=== PATIENT | male | born 1960 | race Caucasian/White ===

== ENCOUNTER → 2023-05-07 08:58 | Outpatient (CLI) | payer OTHER, SELFPAY ==
--- NOTE | ~2023-05-07 | XR_ITS ---
EXAMINATION: XR abdomen/kub 1V DATE: 05/07/2023 09:52 INDICATION: Other microscopic hematuria. TECHNIQUE: A supine view of the abdomen on 2 radiographs was obtained. COMPARISON: CT abdomen and pelvis 05/07/2023 FINDINGS: There are no dilated loops of bowel. There are 2 stones in left kidney measuring up to 5 mm . IMPRESSION: 1. Left kidney stones. Reviewed, dictated and finalized at location E. IMPRESSION: 1. Left kidney stones.
--- NOTE | ~2023-05-07 | CT_ITS ---
CT of the Abdomen and Pelvis: Indication: Microscopic hematuria Technique: 2.5 mm axial scans were obtained through the abdomen and pelvis prior to and following in travenous administration of 130 cc of Omnipaque 350. Dose reduction technique was used on this scan b y utilizing automated exposure control and iterative reconstruction technique. The dose-length produc t (DLP) was 1282.64 mGy-cm. Findings: Scans through the lung bases are unremarkable. The liver, spleen, pancreas, gallbladder, adrenals and right kidney are within normal limits. There a re 2 nonobstructing left renal stones, at the mid pole measuring 7 mm, and at the lower pole measurin g 4 mm. There are atherosclerotic calcifications of the aorta. No lymphadenopathy. No bowel obstruction or bowel wall thickening. There is no evidence to suggest acute appendicitis. Images through the pelvis were performed. Urinary bladder unremarkable. Prostate gland and seminal ve sicles are unremarkable. No ascites. Impression: Nonobstructing left nephrolithiasis, as detailed above. Reviewed, dictated and finalized at location M. Impression: Nonobstructing left nephrolithiasis, as detailed above.
[2023-05-07 09:27] LABS: Estimated Glomerular Filt Rate > 60
== END ==
PROVIDERS: PCP Urology; Visit Provider Urology
DX: R31.29 Other microscopic hematuria (principal); N20.0 Calculus of kidney
CPT/HCPCS: 74018; 74178; Q9967

== ENCOUNTER 2023-06-28 07:36 | Outpatient (CLI) | payer OTHER, SELFPAY ==
[2023-06-28 08:06] LABS: Basophils Percent Auto 0.7 % (0.2-1.2); Eosinophils Absolute Auto 0.2 K/mm3 (0-0.3); Eosinophils Percent Auto 3.8 % (0-4.4); Hematocrit 47.4 % (42.0-52.0); Hemoglobin 15.6 g/dL (14.0-18.0); Immature Granulocyte Absolute 0.02 K/mm3 (0.00-0.031); Immature Granulocyte Percent A 0.3 % (0-0.5); Lymphocytes Absolute Auto 1.73 K/mm3 (0.9-3.2); Lymphocytes Percent Auto 30.1 % (18.3-44.2); Mean Corpuscular HGB Conc 32.9 g/dl (32-36); Mean Corpuscular Hemoglobin 30.2 pg (26-34); Mean Corpuscular Volume 91.9 fl (80-100); Mean Platelet Volume 10.6 fl (7.4-10.4); Monocytes Absolute Auto 0.4 K/mm3 (0.1-0.6); Monocytes Percent Auto 7.3 % (2.6-8.5); Neutrophils Absolute Auto 3.3 K/mm3 (1.3-6.7); Neutrophils Percent Auto 57.8 % (45.5-73.1); Platelet Count Result 208 k/mm3 (150-375); Red Blood Count 5.16 M/mm3 (4.6-6.20); Red Cell Distribution Width 11.9 % (11.5-14.5); White Blood Count 5.8 K/mm3 (4.5-10.0)
[2023-06-28 08:10] LABS: Prothrombin Time 13.9 Seconds (11.1-14.7)
[2023-06-28 08:11] LABS: Partial Thromboplastin Time 28.4 SECONDS (22.3-36.8)
[2023-06-28 08:42] LABS: Anion Gap 10 mmol/L (8-16); Blood Urea Nitrogen 24 mg/dL (9-20); Calcium 9.7 mg/dL (8.4-10.2); Carbon Dioxide 26 mmol/L (22-30); Chloride 106 mmol/L (98-107); Estimated Glomerular Filt Rate > 60; Glucose 106 mg/dL (65-110); Potassium 4.4 mmol/L (3.4-5.0); Sodium 142 mmol/L (137-145)
== END 2023-06-28 07:37 | disposition home or self-care (01) ==
LOC: ANHLAB 07:38
PROVIDERS: PCP Internal Medicine; Visit Provider Urology
DX: R97.20 Elevated prostate specific antigen [PSA] (principal); Z01.818 Encounter for other preprocedural examination
CPT/HCPCS: 36415; 80048; 85025; 85610; 85730

== ENCOUNTER 2023-07-01 01:07 | Day surgery (SDC) | payer OTHER, SELFPAY ==
[2023-06-27 12:58] VITALS: BMI 23.0
--- NOTE | 2023-06-27 12:59 | PC.NURSE ---
Report to the Outpatient Waiting Room, entrance under the green pavilion located off [facility], at time _0730_ on date _[id number]_. Planned Procedure Time: _0930_. Time changes happen often and if your time is changed the preop area will call you the afternoon before. - You and your visitor will be asked to self-screen and do not enter if you have any COVID symptoms. - A mask is optional within the hospital at this time. Patients may have clear liquids (water, carbonated beverages, clear teas, apple juice) until 3 hours prior to surgery with a maximum of 20 ounces. - No food from midnight until time of surgery Take the following medications with a SIP of water the morning of surgery: ___Levothyroxine DO NOT STOP ANY OF YOUR OTHER PRESCRIPTION MEDICATIONS PRIOR TO SURGERY ?EXCEPT THE FOLLOWING Medications to discontinue per physician None Date to take last dose Please no make-up, nail montserratian, hairspray, perfume, deodorant, or body powder the day of surgery. No jewelry (including any body piercings) or valuables the day of surgery, leave them at home. Please take a shower or bath the night before, or the morning of, surgery with an antibacterial soap. Wear comfortable, loose fitting clothing. - Jewelry must be removed prior to entering the operating room. Rings and piercings that are not removed may be cut off. - The hospital will not accept responsibility for valuables. - Please leave all valuables, including medications, at home the day of surgery. If you are going home after surgery, a licensed goat driver must drive you home. - NO public transportation without another adult if you receive anesthesia. - We recommend that an adult stay with you for 24 hours following discharge. - We also recommend that you do not drive, make important decision, drink alcoholic beverages, or take any drugs that were not prescribed by your health care provider for at least 24 hours after your discharge time. Follow any additional instructions given to you from your surgeon. If you or anyone in your household have experienced Covid symptoms in the past week, please notify your surgeon or the nurse liaison at the phone number below for possible testing. Telephone instructions given to _Dan___and asked if any additional questions and then verbalized understanding. Patient advised to call surgeon office or pre surgery nurse liaison [phone] if any additional questions.
[2023-07-01] VITALS (15 sets, daily range): BP systolic 101–150; BP diastolic 58–93; PULSE 57–84; RESP 12–25; TEMP 36–36.6; O2SAT 98–100
--- NOTE | 2023-07-01 06:14 | ECG_ITS ---
Measurements Intervals [place] Rate: 72 P: 79 MN: 159 QRS: 59 QRSD: 93 T: 55 QT: 362 QTc: 398 Interpretive Statements SINUS RHYTHM NONSPECIFIC T-WAVE ABNORMALITY ABNORMAL ECG NO PREVIOUS ECG AVAILABLE FOR COMPARISON Electronically Signed On 07-01-2023 16:59:44 QUALITY CONTROL ANALYST by Homer Jay M.D.
[2023-07-01] MEDS: LACTATED RINGERS 1,000 ML 30 ML IV CONT ×2 (08:00→10:38)
--- NOTE | 2023-07-01 08:13 | WPDHPUPDATE1 ---
History and Physical Update Update Date/Time: 07/01/23 08:13 History and Physical has been reviewed, including an updated exam of the patient. There are NO changes in the patient's condition. Risks, benefits, and alternatives have been discussed and questions answered. Patient agrees to proceed with procedure. Proceed with transurethral resection of prostate
--- NOTE | 2023-07-01 08:36 | P.PNAN_ITS ---
Anes - Initial Pre Proc Eval Procedure: Operation Date: 07/01/23 09:30 Proposed Procedures p Trans Urethral Resection of Prostate, Possible Prostate Biopsy - Mark Adrian MD Date/Time: 07/01/23 08:36 Surgeon: Mark Adrian MD Pre Op Diagnosis: bph,elevate psa Patient Data Age: 62 Gender: M Height: 1.78 m Weight: 72.7 kg Allergies Allergy/AdvReac Type Severity Reaction Status Date / Time No Known Allergies Allergy Unverified 06/27/23 12:47 Home Medications Medication Instructions Recorded Confirmed Type levothyroxine 100 mcg tablet 100 mcg PO QAM 06/27/23 06/27/23 History rosuvastatin 40 mg tablet 40 mg PO QAM 06/27/23 06/27/23 History vitamin E 400 unit tablet 180 mg PO DAILY 06/27/23 06/27/23 History Patient hx anesthesia problems: none Family hx anesthesia problems: none Results Review: All pre-operative results and documents have been reviewed as part of the pre- operative evaluation. [facility] Social History Social History Smoking packs per day: 1 Smoking cigarettes per day: 20.0 Years smoked: 10 Smoking pack-years: 10.00 Smoking status: Former smoker Tobacco type: cigarettes Smoking end date: 06/27/93 Alcohol intake: current Drinks per week: 21 Living arrangements: with family Spiritual care concerns: No Anes - Eval Final PreProcedure Day of Procedure 07/01/23 08:36 Patient weight: normal Heart: regular rate and rhythm Lungs: clear to auscultation Airway: Mallampati scale class II Neurological: alert and oriented Last oral intake: >/= 8 hours ASA classification: II Emergent: no Anesthetic plan: proceed Anesthesia type and monitoring: general LMA and standard monitoring Results Review: All pre-operative results and documents have been reviewed as part of the pre- operative evaluation. Informed Consent: The patient's anesthetic plan and its attendant risks and benefits were discussed with the patient/family/POA. Questions were solicited and answers provided to the satisfaction of the patient/family/POA.
[2023-07-01] MEDS: fentaNYL CITRATE INJ (*CRX) 100 MCG/2 ML VIAL 50 MCG IV PUSH (08:50)
[2023-07-01] MEDS: ceFAZolin 2 GM/D5W 50 ML 2 GM/50 ML BAG IVPB (09:43)
[2023-07-01] MEDS: LIDOCAINE HCL 2% GEL UROJET 10 ML PKG MUCOUS MEM (10:04)
--- NOTE | 2023-07-01 10:45 | P.OP_ITS ---
Procedure Note - Detailed Date of Procedure 07/01/23 Pre-op Diagnosis bph,elevate psa, obstructive voiding symptoms with pain Post-op Diagnosis Same Procedure Performed Transurethral resection of his prostate Surgeon Mark Adrian MD Anesthesia General Description of Procedure Patient is taken to the operative suite correctly identified. Once anesthesia was obtained was placed in dorsal lithotomy position and prepped and draped usual sterile fashion. Endoscopy reveals again very friable abnormal appearing tissue which is distorted the normal anatomic landmarks of the verumontanum. There also was irregularity at the bladder neck and extending into the mid trigone area. No other tumors were noted in the bladder. Both ureteral orifices were visualized at all times. Twenty-four Egyptian resectoscope sheath was then inserted. We did take down the lateral lobes from the bladder neck to what appeared to be proximal to the verumontanum. Again the normal anatomy is distorted and I did not want to on the risk of injuring the external sphincter. Unopened prostatic fossa was created. He then had irregularity still at the bladder neck and the 6 o'clock position extending to the mid trigone area. I resected this in a separate fashion and sent it separately. Hemostasis was achieved using electrocautery. 2% viscous lidocaine was inserted into the urethra. Twenty-four Egyptian [address] was placed with 10 cc in the balloon. Patient is taken recovery stable condition. Further recommendation will be made pending his path report. This completes dictation on this patient. Please send a copy to my office Estimated Blood Loss 25 Drains Yes Packing No Pathology Yes Complications No immediate complications Condition Stable Disposition PACU
[2023-07-01] MEDS: fentaNYL CITRATE INJ (*CRX) 100 MCG/2 ML VIAL 25 MCG IV PUSH ×8 (10:59→13:32)
[2023-07-01] MEDS: oxyBUTYnin CHLORIDE 5 MG TABLET PO (11:49)
--- NOTE | 2023-07-01 12:11 | SUR.PHASEI ---
1200: Patient meets PACU discharge criteria, unit bed unavailable at this time. Patient placed in extended recovery status.
[2023-07-01] MEDS: ceFAZolin 1 GM/NS 50 ML 1 GM/50 ML BAG IVPB (15:25)
[2023-07-01] MEDS: MORPHINE SULFATE (*CRX) 2 MG/ML INJ IV PUSH (15:25)
[2023-07-01] MEDS: DOCUSATE SODIUM 100 MG CAPSULE PO (18:09)
[2023-07-01] MEDS: HYDROcodone/acetaminophen (*CRX) 5-325 MG TABLET 1 TAB PO (18:10)
[2023-07-02 00:19] VITALS: BP 107/67; PULSE 63; RESP 14; TEMP 36.4; O2SAT 98
[2023-07-02] MEDS: ceFAZolin 1 GM/NS 50 ML 1 GM/50 ML BAG IVPB (02:15)
[2023-07-02 04:19] VITALS: BP 124/72; PULSE 65; RESP 14; TEMP 36.6; O2SAT 100
[2023-07-02] MEDS: LEVOTHYROXINE SODIUM 100 MCG TABLET PO (05:51)
[2023-07-02] MEDS: CEPHALEXIN 500 MG CAPSULE PO (05:51)
[2023-07-02] MEDS: HYDROcodone/acetaminophen (*CRX) 5-325 MG TABLET 1 TAB PO (05:51)
[2023-07-02 07:19] LABS: Hematocrit 44.7 % (42.0-52.0); Hemoglobin 15.2 g/dL (14.0-18.0)
[2023-07-02 07:32] LABS: Anion Gap 7 mmol/L (8-16); Blood Urea Nitrogen 15 mg/dL (9-20); Calcium 9.4 mg/dL (8.4-10.2); Carbon Dioxide 26 mmol/L (22-30); Chloride 105 mmol/L (98-107); Estimated CRCL calculation 77 ml/min; Estimated Glomerular Filt Rate > 60; Glucose 101 mg/dL (65-110); Potassium 4.9 mmol/L (3.4-5.0); Sodium 138 mmol/L (137-145)
[2023-07-02 08:00] VITALS: BP 124/73; PULSE 67; RESP 18; TEMP 36.5; O2SAT 100
[2023-07-02] MEDS: DOCUSATE SODIUM 100 MG CAPSULE PO (08:31)
[2023-07-02] MEDS: ROSUVASTATIN 10 MG TABLET 40 MG PO (08:31)
--- NOTE | 2023-07-02 10:18 | WPDUROPN2 ---
Progress Note: A&P Assessment and Plan (1) Elevated PSA: Code(s): R97.20 - Elevated prostate specific antigen [PSA] Status: Acute Assessment and Plan: Awaiting final pathology on prostate resection (2) BPH w urinary obs/LUTS: Code(s): N40.1 - Benign prostatic hyperplasia with lower urinary tract symptoms; N13.8 - Other obstructive and reflux uropathy Status: Acute Assessment and Plan: Status post transurethral resection of prostate. Doing well overall. Urine is clear on minimal CBI. Will hold CBI. If remains clear he will be discharged home a little later this afternoon. Plan is to have Levine catheter removed on Friday. Patient will be instructed how to do that. If he is unable to he will call the office. Further recommendations will be made pending his final pathology. Subjective Subjective Date/Time Seen: 07/02/23 10:18 Post Op day: 1 (Transurethral resection of prostate) Principal diagnosis: Elevated PSA with obstructive voiding symptoms Interval history: Darnell is doing well overall today. His urine was clear with minimal CBI. Have discussed intraoperative findings with patient and his today. Pathology is pending Review of Systems Review of Systems: All systems reviewed & are unremarkable except as noted in HPI and below Exam Const: General: cooperative and comfortable Resp: Effort & Inspection: normal respiratory effort Cardio: Rate: regular rate Rhythm: regular rhythm Urinary Catheter: Urinary Catheter: patent and draining and urine clear Objective Data Vital Signs Vital Signs: Vital Signs - 24 hr 07/01/23 10:38 07/01/23 10:49 07/01/23 10:50 Temperature 36.6 C Pulse Rate 57 L 79 83 Respiratory Rate 12 18 12 Blood Pressure 107/73 120/74 127/75 Pulse Oximetry 100 100 100 Oxygen Delivery Simple Face Mask Simple Face Mask Simple Face Mask Oxygen Flow Rate 8 8 8 07/01/23 11:05 07/01/23 11:20 07/01/23 11:45 Temperature Pulse Rate 81 84 80 Respiratory Rate 15 12 25 H Blood Pressure 124/75 122/75 120/68 Pulse Oximetry 100 100 100 Oxygen Delivery Simple Face Mask Simple Face Mask Room Air Oxygen Flow Rate 8 8 07/01/23 12:00 07/01/23 12:15 07/01/23 13:05 Temperature Pulse Rate 70 76 62 Respiratory Rate 15 14 16 Blood Pressure 150/93 H 139/93 H 129/77 Pulse Oximetry 98 98 100 Oxygen Delivery Room Air Room Air Room Air Oxygen Flow Rate 07/01/23 15:00 07/01/23 15:15 07/01/23 15:45 Temperature 36.4 C L 36.4 C L 36.0 C L Pulse Rate 67 76 63 Respiratory Rate 18 16 16 Blood Pressure 119/62 131/60 131/60 Pulse Oximetry 100 100 100 Oxygen Delivery Oxygen Flow Rate 07/01/23 17:00 07/01/23 19:38 07/01/23 20:19 Temperature 36.2 C L 36.3 C L Pulse Rate 72 66 Respiratory Rate 16 14 Blood Pressure 101/58 L 108/68 Pulse Oximetry 100 98 Oxygen Delivery Room Air Oxygen Flow Rate 07/02/23 00:19 07/02/23 04:19 07/02/23 08:00 Temperature 36.4 C 36.6 C 36.5 C Pulse Rate 63 65 67 Respiratory Rate 14 14 18 Blood Pressure 107/67 124/72 124/73 Pulse Oximetry 98 100 100 Oxygen Delivery Oxygen Flow Rate 07/02/23 08:00 Temperature Pulse Rate Respiratory Rate Blood Pressure Pulse Oximetry Oxygen Delivery Room Air Oxygen Flow Rate Intake/Output Intake/Output: Intake & Output 06/29/23 06/30/23 07/01/23 07/02/23 23:59 23:59 23:59 23:59 Intake Total 1960 550 Output Total 75239 2100 Balance -39932 -2320 Meds/Results Medications: Active Medications Generic Name Dose Route Start Last Admin Trade Name Freq PRN Reason Stop Dose Admin Hydrocodone Bitart/Acetaminophen 1 tab 07/01/23 14:34 07/02/23 05:51 Hydrocodone/Acetaminophen (*Crx) 5-325 Mg Tablet PO 1 tab Q4H PRN Administration Pain Rated 1-6 Cephalexin HCl 500 mg 07/02/23 06:00 07/02/23 05:51 Cephalexin 500 Mg Capsule PO 500 mg QID OCTAVIO Administration Docusate Sodium 100 mg 07/01/23 17:00
--- NOTE | 2023-07-02 10:21 | PM.DS ---
DS: Admitting Diagnosis Discharge Date 07/02/2023 Admitting Diagnosis Elevated PSA with obstructive voiding symptoms DS: Discharge Diagnosis Discharge Diagnosis (1) BPH w urinary obs/LUTS: Code(s): N40.1 - Benign prostatic hyperplasia with lower urinary tract symptoms; N13.8 - Other obstructive and reflux uropathy Status: Acute (2) Elevated PSA: Code(s): R97.20 - Elevated prostate specific antigen [PSA] Status: Acute DS: Summary Hospital Course Reason for hospitalization: Transurethral resection of prostate Hospital Course: Darnell had an uneventful transurethral section of his prostate yesterday. Postoperatively he has done well. His urine is clear on minimal CBI. Patient has been ambulating and tolerating a diet. He will be discharged home with Levine catheter and have it removed on Friday. Time Spent with Patient Time attestation: Total time spent providing and/or coordinating discharge services: DS: Data Data Completed and Pending Pending studies at discharge: Pending at discharge 07/01/23 10:17 Surgical [PTH] Routine Labs on day of discharge: Labs from last 24 hours 07/02/23 06:39 Hgb 15.2 Hct 44.7 Sodium 138 Potassium 4.9 Chloride 105 Carbon Dioxide 26 Anion Gap 7 L BUN 15 D Creatinine 0.90 Estim Creat Clear Calc 77 Estimated GFR > 60 Glucose 101 Calcium 9.4 Discharge Plan Discharge Patient Disposition: Home, Self-Care Stand Alone Forms: General Discharge Instructions Discharge Medications: No Action levothyroxine 100 mcg tablet 100 mcg PO QAM vitamin E 400 unit Tablet 180 mg PO DAILY rosuvastatin 40 mg tablet 40 mg PO QAM Other Ambulatory Orders: CA 12 lead EKG (Routine) Timeframe: [id number] Location: Determined by Patient Ordered By: Eris Butts
--- NOTE | 2023-07-02 11:55 | PC.NURSE ---
d/c education done, leg bag in place, supplies given for removal of mina. iv out. patient and spouse denies any other questions. patient wheeled out by wheelchair and leaving by private car.
== END 2023-07-02 11:55 | disposition home or self-care (01) ==
LOC: ANHSURGERY 07:35 → ANH3MEDSUR 14:37
PROVIDERS: PCP Internal Medicine; Visit Provider Urology
PROC: 0VT08ZZ Resection of Prostate, Via Natural or Artificial Opening Endoscopic (ICD-10-PCS; CPT 52601; principal; 2023-07-01 09:30)
DX: C61 Malignant neoplasm of prostate (principal); N13.8 Other obstructive and reflux uropathy; Z87.891 Personal history of nicotine dependence
CPT/HCPCS: 52601; 36415; 80048; 85014; 85018; 85025; 85610; 85730; 88305; 88342; 93005; A9270; J0690; J1100; J2270; J2405; J2704; J3010; J7120

== ENCOUNTER 2023-07-23 13:27 | Outpatient (CLI) | payer OTHER, SELFPAY ==
--- NOTE | ~2023-07-23 | PE_ITS ---
EXAMINATION: PET_PETPSMAST_PT DATE: 07/23/2023 15:55 INDICATION: Prostate cancer TECHNIQUE: 8.979 mCi of pipflufolastat F-18 (18-F-DCFPyL) was administered i.v. Low dose computed to mography (CT) images were acquired from the base of the brain to the base of the brain to the proxima l thighs for attenuation correction and anatomic localization. Positron emission tomography (PET) niko ges were acquired in the same distribution beginning 83 minutes after injection. Images including fus ed PET/CT images were reconstructed in axial, coronal, and sagittal planes. Automated exposure contro l technique was employed. The dose-length product was 545.11mGy-cm. COMPARISON: None FINDINGS: Head/neck: Typical pattern of symmetric physiologic increased activity in the lacrimal, parotid and submandibula r glands as well as along the mucosa of the nasal and oral cavities, the lucia-, naso- and hypopharynx, the glottis and esophagus. There is also a typical pattern of symmetric tiny foci of mild likely phy siologic neural ganglia uptake at a few bilateral cervical neural foramina. No pathologically enlarge d cervical lymphadenopathy or suspicious foci of increased uptake in the visualized head or neck. Chest: Mild discoid atelectasis in the right middle lobe. Calcified left apical nodule consistent with old g ranulomatous disease. No suspicious pulmonary nodules, pneumonia or other pulmonary infiltrates. No p leural effusion. Heart size is normal. Atherosclerotic coronary artery calcification is. No pericardi al effusion. Thoracic aorta is normal in caliber. No pathologically enlarged or PSMA avid thoracic ly mphadenopathy. Abdomen/pelvis/proximal thighs: Physiologic renal accumulation and excretion of activity in the kidneys, bladder and along portions o f ureters. 7 mm nonobstructing left renal stone. The prostate is enlarged with diffuse heterogeneous increased PSMA uptake with a few foci of more intense uptake with maximal SUV values up to 15.8 at th e posterior gland. There is more intense uptake centrally although this could represent excreted urin jr activity in the prostatic urethra. Normal degree and slightly heterogenous pattern of increased u ptake throughout the liver and spleen without radiologic correlate or dominant PSMA avid lesion. The gallbladder, pancreas and bilateral adrenal glands are normal. Moderate uptake scattered throughout t he bowels with typical duodenal and proximal jejunal predominance and without radiologic correlate, a lso likely physiologic. Normal appendix. No other abnormal foci of increased uptake or pathologically enlarged lymphadenopathy in the abdomen, pelvis or proximal thighs. Musculoskeletal: There are numerous PSMA avid sclerotic bone lesions throughout the axial and appendicular skeleton. I f you've the largest include at the T9 vertebral body, the supra-acetabular left ilium and at the rig ht sacral ala, the latter with maximal SUV values of 22.2. IMPRESSION: 1. Numerous PSMA avid and sclerotic bone lesions scattered throughout the axial and appendicular skel eton consistent with widespread osseous metastatic disease. 2. Diffuse heterogeneous increased uptake in the prostate consistent with likely primary prostate can cer. No other evident nonosseous metastatic disease. Reviewed, dictated and finalized at location A. CUTTER IMPRESSION: 1. Numerous PSMA avid and sclerotic bone lesions scattered throughout the axial and appendicular skeleton consistent with widespread osseous metastatic diseas e. 2. Diffuse heterogeneous increased uptake in the prostate consistent with likel y primary prostate cancer. No other evident nonosseous metastatic disease.
== END 2023-07-23 13:28 | disposition home or self-care (01) ==
PROVIDERS: PCP Internal Medicine; Visit Provider Urology
DX: C61 Malignant neoplasm of prostate (principal)
CPT/HCPCS: 78815; A9595

== ENCOUNTER 2024-03-02 07:36 | Outpatient (CLI) | payer BC, SELFPAY ==
--- NOTE | ~2024-03-02 | DEXA_ITS ---
Bone Density Report Name: DEEPA MANDEL Age: 63 Sex: Male Ethnicity: White Date of : 1960 Indication: cancer; Referring Provider: ADELIA BARRIOS Study: Bone densitometry was performed. Exam Date: March 02, 2024 Accession number: [id number] Bone Density: Region BMD T-score Z-score Classification AP Spine(L1, L2, L3) 1.087 0.2 0.9 Normal Femoral Neck (Left) 0.776 -1.1 -0.1 Osteopenia Total Hip (Left) 1.024 -0.1 0.4 Normal Femoral Neck (Right) 0.793 -1.0 0.0 Normal Total Hip (Right) 1.024 -0.1 0.4 Normal Femoral Neck Mean 0.785 -1.1 -0.1 Osteopenia Total Hip Mean 1.024 -0.1 0.4 Normal World Health Organization criteria for BMD impression classify patients as: Normal (T-score at or above -1.0), Osteopenia (T-score between -1.0 and -2.5), or Osteoporosis (T-score at or below -2.5). 10-year Fracture Risk(1): Major Osteoporotic Fracture 5.4% Hip Fracture 0.5% Reported Risk Factors: [place] (), Neck BMD=0.776, BMI=25.7 (1) FRAX(R) Version 3.08. Fracture probability calculated for an untreated patient. Fracture probability may be lower if the patient has received treatment. Clinical Information Provided by Patient: Has used the following medications: Vitamin D, Calcium Has the following medical conditions: Cancer Patient maximum height was 70 No regular weight bearing exercise Drinks caffeinated beverages Impression: The patient has low bone mass, based on the Left Femoral Neck T-score. Discussion: BONE DENSITY IS LOW AT ONE OR MORE SKELETAL SITES. This patient's lowest T-score is low at one or more skeletal sites. It meets the World Health Organization's (WHO) criteria for ?low bone mass? (T-score between -1.0 and -2.5). The patient's 10-year risk of fracture as calculated by FRAX is less than the threshold where pharmacological therapy is recommended by the National Osteoporosis Foundation (NOF). However, all treatment decisions require clinical judgment and consideration of individual patient factors, including patient preferences, comorbidities, previous drug use, risk factors not captured in the FRAX model (e.g., frailty, falls, vitamin D deficiency, increased bone turnover, interval significant decline in bone density) and possible under or overestimation of fracture risk by FRAX. The patient should follow a healthful lifestyle (good nutrition with adequate calcium and vitamin D, and appropriate weight-bearing exercise). Follow-Up: Consider repeating this study in 2 to 3 years to reassess this patient's status, or sooner if there is some new clinical indication. Reported by: Dr. Hayden Almonte on 03/02/2024 7:59:00 AM. Reviewed, dictated and finalized at location [facility]
== END 2024-03-02 07:37 | disposition home or self-care (01) ==
LOC: CHSIMG 07:40
PROVIDERS: Visit Provider Urology
DX: M85.89 Other specified disorders of bone density and structure, multiple sites (principal)
CPT/HCPCS: 77080

== ENCOUNTER 2024-09-01 12:07 | Emergency (ER) | payer OTHER, BC, SELFPAY ==
[2024-09-01 12:09] VITALS: BP 149/89; PULSE 90; RESP 18; TEMP 36.5; O2SAT 99
--- OUTSIDE RECORDS SUMMARY | 2024-09-01 12:25 | XMS_ITS ---
Author Organization [facility] Address [address] [place] [address] Care Team Providers Care Shuttlecock Assembler Name Role Phone Jacobo Thompson MD Primary Care Provider Blair Doherty MD Unavailable [phone] Mark Adrian MD Unavailable [phone] Duc Chapa MD Unavailable [phone] Active Problems Problem Noted Date Diagnosed Date Prostate cancer 08/26/2023 Current Oncology Plans IV Maintenance Therapy Plan w/ carrier fluids* Plan Start Date:10/08/2023 Plan Provider:Duc Chapa MD Linked Problems Prostate cancer (HCC) Treatment Medications No medications scheduled. Past Plans Oncology Chemotherapy Treatment Plan Name Start Date Discontinue Date Treatment Medications Discontinue Reason Plan Provider Cycles DOCEtaxel / PredniSONE 21 day Cycles - Prostate 4 07/06/2024 dexAMETHasone (DECADRON)DOCEta xel (TAXOTERE) IVPB in 0.9% sodium chloride 250 mL (Bag #1 for desensitization) DOCEtaxel (TAXOTERE) IVPB in 0.9% sodium chloride 250 mL (Bag #2 for desensitization) DOCEtaxel (TAXOTERE) IVPB in 0.9% sodium chloride 250 mL (Bag #3 for desensitization) DOCEtaxel (TAXOTERE) IVPB in 250 mL (vial 20mg/mL) Therapy Complete Duc Chapa MD 7 of 7 cycles started Radiation Treatments * No radiation treatments are documented for this patient in [facility]. Treatments may have been administered in another system.
--- OUTSIDE RECORDS SUMMARY | 2024-09-01 12:25 | XMS_ITS | Referral Summary ---
Author Organization [facility] Address [address] [place] [address] Care Team Providers Care [employer] So[employer] Developer Name Role Phone Jacobo Thompson MD Primary Care Provider Blair Doherty MD Unavailable [phone] Mark Adrian MD Unavailable [phone] Duc Chapa MD Unavailable [phone] Encounters Date Type Department Care Team Description 07/06/2024 2:00 PM PLATE PUT IN WORKER Lab [facility] [address] [place] [phone] Prostate cancer (HCC) 07/06/2024 2:30 PM PLATE PUT IN WORKER Office Visit [facility] [address] [place] [phone] Duc Chapa MD Prostate cancer (HCC) 07/05/2024 6:42 AM PLATE PUT IN WORKER - 07/05/2024 11:59 PM PLATE PUT IN WORKER Hospital Encounter [facility] - Imaging [address] [place] [phone] Duc Chapa MD Prostate cancer (HCC) Discharge Disposition: Discharge to home or self care from Last 3 Months Allergies No known active allergies Medications rosuvastatin (CRESTOR) 40 mg tablet Take 1 tablet (40 mg total) by mouth daily Active levothyroxine (SYNTHROID) 100 mcg tablet Take 1 tablet (100 mcg total) by mouth congregational care pastor before breakfast Active darolutamide (Nubeqa) 300 mg tablet Take 2 tablets (600 mg total) by mouth 2 (two) times a day Swallow whole. Take with food. Active montelukast (SINGULAIR) 10 mg tablet Take 1 tablet (10 mg total) by mouth nightly 30 tablet 11 4 09/07/19 25 Active Additional Information Patient not taking.Reported on 07/06/2024 tamsulosin (FLOMAX) 0.4 mg extended release capsule TAKE 1 CAPSULE BY MOUTH EVERYDAY AT BEDTIME 4 Active triamcinolone (KENALOG) 0.1 % cream Apply topically 2 (two) times a day Apply topically to affected areas twice daily as needed 30 g 1 4 Active alendronate (FOSAMAX) 70 mg tablet TAKE 1 TABLET BY MOUTH ONCE WEEKLY 4 Active Active Problems Problem Noted Date Diagnosed Date Prostate cancer 08/26/2023 Immunizations Name Administration Dates Next Due Influenza, Trivalent, Preservative Free, Intramu scular 04/20/2024 Social History Tobacco Use Types Packs/Day Years Used Date Smoking Tobacco: Never Assessed Sex and Gender Information Value Date Recorded Sex Assigned at Not on file Legal Sex Male 3:06 AM PLATE PUT IN WORKER Gender Identity Not on file Sexual Orientation Not on file Last Filed Vital Signs Vital Sign Reading Time Taken Comments Blood Pressure 128/77 07/06/2024 2:17 PM PLATE PUT IN WORKER Pulse 77 07/06/2024 2:17 PM PLATE PUT IN WORKER Temperature 36.1 C (96.9 F) 07/06/2024 2:17 PM PLATE PUT IN WORKER Respiratory Rate 18 07/06/2024 2:17 PM PLATE PUT IN WORKER Oxygen Saturation 100% 07/06/2024 2:17 PM PLATE PUT IN WORKER Inhaled Oxygen Concentration - - Weight 81.5 kg (179 lb 9.6 oz) 07/06/2024 2:17 P M PLATE PUT IN WORKER Height 177.8 cm (5' 10 ) 12/10/2023 11:42 AM CDT Body Mass Index 25.77 12/10/2023 11:42 AM CDT Plan of Treatment Not on file Procedures Procedure Name Priority Date/Time Associated Diagnosis Comments EGFR Routine 07/06/2024 1:36 PM PLATE PUT IN WORKER Prostate cancer (HCC) DIFFERENTIAL AUTO Routine 07/06/2024 1:3 6 PM PLATE PUT IN WORKER Prostate cancer (HCC) CBC WITH AUTO DIFFERENTIAL Routine 07/06/2024 1:36 PM PLATE PUT IN WORKER Prostate cancer (HCC) COMPREHENSIVE METABOLIC PANEL Routine 07/06/2024 1:36 PM PLATE PUT IN WORKER Prostate cancer (HCC) PSA DIAGNOSTIC Routine 07/06/2024 1:36 PM PLATE PUT IN WORKER Prostate cancer (HCC) CT CHEST ABDOMEN PELVIS W CONTRAST Schedule Routine, Read Routine (OP Routine) 07/05/2024 7:20 AM PLATE PUT IN WORKER Prostate cancer (HCC) HEPATITIS PANEL, ACUTE Routine 09/08/2023 11:05 AM PLATE PUT IN WORKER Prostate cancer (HCC) from Last 3 Months or Most Recently Relevant to Health Maintenance Results * eGFR (07/06/2024 1:36 PM PLATE PUT IN WORKER) eGFR 87 >=60 mL/min/1. 73 m2 Comment: Interpretive Data Reference Interval Normal >/= 90 mL/min/1.73m2 Mildly decreased* 60 - 89 mL/min/1.73m2 Mildly to moderately decreased 45 - 59 mL/min/1.73m2 Moderately to severely decreased 30 - 44 mL/min/1.73m2 Severely decreased 15 - 29 mL/min/1.73m2 Kidney Failure < 15 mL/min/1.73m2 *Relative to young adult level Estimated glomerular filtration rate is determined by the 2020 CKD-EPI equation recommended by the National Kidney Foundation (A Unifying Approach to GFR Estimation: Recommendations of the NKF-ASK Task Force on Reassessing the Inclusion of Race in Diagnosing Kidney Disease, JASN 202). The CKD-EPI equation should not be used for patients with unstable renal function and has not been validated in children and those over 70. Current interpretive data was last reviewed 2021. Blood 07/06/2024 1:36 PM PLATE PUT IN WORKER 07/06/2024 1:48 PM PLATE PUT IN WORKER Duc Chapa MD LAB BLOOD ORDERABLES Final R esult [facility] [address] Department [place] [address] * Differential, auto (07/06/2024 1:36 PM PLATE PUT IN WORKER) Neutrophil abs 3.9 1.5 - 6.5 K/cumm Imm gran abs 0.0 0.0 - 0.1 K/cumm [facility] Lymphocyte abs 1.8 0.8 - 3.3 K/cumm [facility] Monocyte abs 0.6 0.2 - 0.8 K/cumm [facility] Eosinophil abs 0.2 0.0 - 0.5 K/cumm [facility] Basophil abs 0.1 0.0 - 0.1 K/cumm [facility] Neutrophil pct 59.1 % [facility] Comment: Interpretive Data Percent cell count reference ranges are not reported, since discordance with absolute values may lead to misinterpretation of CBC data. Current Interpretive Data was last revised on 2017. Imm gran pct 0.3 % [facility] Comment: Interpretive Data Percent cell count reference ranges are not reported, since discordance with absolute values may lead to misinterpretation of CBC data. Current Interpretive Data was last revised on 2017. Lymphocyte pct 27.3 % [facility] Comment: Interpretive Data Percent cell count reference ranges are not reported, since discordance with absolute values may lead to misinterpretation of CBC data. Current Interpretive Data was last revised on 2017. Monocyte pct 9.0 % [facility] Comment: Interpretive Data Percent cell count reference ranges are not reported, since discordance with absolute values may lead to misinterpretation of CBC data. Current Interpretive Data was last revised on 2017. Eosinophil pct 3.5 % [facility] Comment: Interpretive Data Percent cell count reference ranges are not reported, since discordance with absolute values may lead to misinterpretation of CBC data. Current Interpretive Data was last revised on 2017. Basophil pct 0.8 % [facility] Comment: Interpretive Data Percent cell count reference ranges are not reported, since discordance with absolute values may lead to misinterpretation of CBC data. Current Interpretive Data was last revised on 2017. Blood 07/06/2024 1:36 PM PLATE PUT IN WORKER 07/06/2024 1:36 PM PLATE PUT IN WORKER Result [facility] Duc Chapa MD LAB BLOOD ORDERABLES Final R esult Performing Organization Address City/[facility] Co de Phone Number [facility] [address] Department [employer] [place], [place] [id number] * CBC with auto differential (07/06/2024 1:36 PM PLATE PUT IN WORKER) WBC 6.5 3.8 - 9.9 K/cumm Hgb 13.7 13.0 - 17.5 g/dL [facility] Hct 39.5 38.9 - 50.3 % [facility] Plt 217 150 - 400 K/cumm [facility] MPV 9.9 9.1 - 12.3 fL [facility] RBC 4.49 4.30 - 5.80 M/cumm [facility] MCV 88.0 81.3 - 96.4 fL [facility] MCH 30.5 27.1 - 33.3 pg [facility] MCHC 34.7 32.3 - 35.7 g/dL [facility] RDW CV 13.0 11.1 - 14.9 % [facility] RDW SD 41.8 35.7 - 48.1 fL [facility] NRBC abs 0.00 0.00 - 0.01 K/cumm [facility] Blood 07/06/2024 1:36 PM PLATE PUT IN WORKER 07/06/2024 1:36 PM PLATE PUT IN WORKER Result [facility] Duc Chapa MD LAB BLOOD ORDERABLES Final R esult Performing Organization Address City/[facility]/ZIP Co de Phone Number [facility] [address] Department of [employer] [place], [place] [id number] * PSA diagnostic (07/06/2024 1:36 PM PLATE PUT IN WORKER) PSA-Total 0.08 <=5.40 ng/mL Comment: Interpretive Data AGE SEX REFERENCE INTERVAL 0 minutes-150 years Female None 0 minutes-49 years Male None 50-59 years Male 0-3.90 60-69 years Male 0-5.40 70-79 years Male 0-6.20 80-150 years Male 0-6.20 The Vamshi PSA Total assay procedure was used. Results from different manufacturers or methods may not be comparable. Serial testing should be performed using the same method. Current interpretive data last revised 21. Blood 07/06/2024 1:36 PM PLATE PUT IN WORKER 07/06/2024 1:48 PM PLATE PUT IN WORKER Duc Chapa MD LAB BLOOD ORDERABLES Final R esult [facility] [address] Department [place] [address] * Comprehensive metabolic panel (07/06/2024 1:36 PM PLATE PUT IN WORKER) Sodium 140 135 - 145 mmol/L Potassium, pl 4.3 3.3 - 4.9 mmol/L [facility] Chloride 102 97 - 110 mmol/L [facility] CO2 28 22 - 32 mmol/L [facility] Anion gap 10 2 - 15 mmol/L [facility] BUN 12 6 - 25 mg/dL [facility] Creatinine 0.98 0.80 - 1.30 mg/dL [facility] Glucose 88 70 - 199 mg/dL [facility] Comment: Interpretive Data Fasting glucose >/= 126 mg/dl is diagnostic for diabetes. Fasting is defined as no caloric intake for at least 8 hours. Fasting glucose between 100 mg/dl to 125 mg/dl is diagnostic of prediabetes. In a patient with classic symptoms of hyperglycemia or hyperglycemic crisis, a random glucose >/= 200 mg/dl is diagnostic for diabetes. In the absence of unequivocal hyperglycemia, results should be confirmed by repeat testing. The classification and Diagnosis of Diabetes Diabetes Care 202; 46: S19-S40. Current interpretive data was last revised 2022. Calcium 9.7 8.5 - 10.3 mg/dL [facility] Bilirubin, total 0.2 0.1 - 1.2 mg/dL [facility] Protein, pl 6.7 6.5 - 8.5 g/dL [facility] Albumin 4.5 3.5 - 5.0 g/dL [facility] Alk phos 73 40 - 130 Units/L [facility] ALT 22 7 - 55 Units/L [facility] AST 26 10 - 50 Units/L [facility] Comment:Slightly Hemolyzed S pecimen Blood 07/06/2024 1:36 PM PLATE PUT IN WORKER 07/06/2024 1:48 PM PLATE PUT IN WORKER us Duc Chapa MD LAB BLOOD ORDERABLES Final R esult [facility] [address] Department [place] [address] * CT Chest Abdomen Pelvis W Contrast (07/05/2024 7:20 AM PLATE PUT IN WORKER) Anatomical Region Laterality Modality Body N/A Computed Tomogra phy 07/05/2024 8:59 AM PLATE PUT IN WORKER Impressions 07/05/2024 8:59 AM PLATE PUT IN WORKER 1. No evidence of progression. 2. Stable partially calcified aortopulmonary lymph node and 1 cm right hilar lymph node. 3. Similar appearance of osseous metastases. Electronically signed by: Gilson Kumar M.D. Narrative 07/05/2024 8:59 AM PLATE PUT IN WORKER EXAMINATION: CT of the chest abdomen and pelvis with intravenous contrast. HISTORY: Restaging. TECHNIQUE: Transaxial computed tomographic images of the chest abdomen and pelvis were obtained with 100 mL of Optiray 350 intravenous contrast according to standard protocol. No immediate complications following intravenous contrast administration. COMPARISON: FINDINGS: No enlarging suspicious nodule. No pleural effusion or pneumothorax. Bibasilar atelectasis/scarring noted. Left upper lobe pulmonary nodule is partially calcified and likely a granuloma. Partially calcified aortopulmonary lymph node noted. 1 cm right hilar lymph node is unchanged. Stable right basilar pleural thickening and calcification. Heart size is normal. No pericardial effusion. Aorta is normal in course and caliber. Coronary artery disease is present. Esophagus and stomach are nondistended. Spleen is normal. Splenic, superior mesenteric, and portal veins are patent. No suspicious liver lesion. Gallbladder is nondistended. The pancreas is unremarkable. Adrenal glands appear normal. Kidneys enhance symmetrically. No hydronephrosis. 3-5 mm nonobstructing left renal stones. Urinary bladder is normal. No bowel obstruction. Appendix is normal. No no abdominopelvic lymphadenopathy. Similar appearance of osseous metastases. Procedure Note Gilson Kumar MD - 07/05/2024 EXAMINATION: CT of the chest abdomen and pelvis with intravenous contrast. HISTORY: Restaging. TECHNIQUE: Transaxial computed tomographic images of the chest abdomen and pelvis were obtained with 100 mL of Optiray 350 intravenous contrast according to standard protocol. No immediate complications following intravenous contrast administration. COMPARISON: FINDINGS: No enlarging suspicious nodule. No pleural effusion or pneumothorax. Bibasilar atelectasis/scarring noted. Left upper lobe pulmonary nodule is partially calcified and likely a granuloma. Partially calcified aortopulmonary lymph node noted. 1 cm right hilar lymph node is unchanged. Stable right basilar pleural thickening and calcification. Heart size is normal. No pericardial effusion. Aorta is normal in course and caliber. Coronary artery disease is present. Esophagus and stomach are nondistended. Spleen is normal. Splenic, superior mesenteric, and portal veins are patent. No suspicious liver lesion. Gallbladder is nondistended. The pancreas is unremarkable. Adrenal glands appear normal. Kidneys enhance symmetrically. No hydronephrosis. 3-5 mm nonobstructing left renal stones. Urinary bladder is normal. No bowel obstruction. Appendix is normal. No no abdominopelvic lymphadenopathy. Similar appearance of osseous metastases. IMPRESSION: 1. No evidence of progression. 2. Stable partially calcified aortopulmonary lymph node and 1 cm right hilar lymph node. 3. Similar appearance of osseous metastases. Electronically signed by: Gilson Kumar M.D. Duc Chapa MD IM CT PROCEDURES Final Resu lt * Hepatitis panel, acute Blood (09/08/2023 11:05 AM PLATE PUT IN WORKER) Hep A IgM Nonreactive Nonreactive [facility] Comment: Interpretive Data: If Hep A IgM Ab is reported as Equivocal, a new sample should be drawn in two weeks for testing. Current interpretive data was last revised on 19. Hep B core IgM Nonreactive Nonreactive [facility] Comment: Interpretive Data If HepB Core IgM Ab is reported as Equivocal, a new sample should be drawn in two weeks for testing. Current interpretive data was last revised on 19. Hep C Ab Nonreactive Nonreactive [facility] Comment: Interpretive Data Nonreactive: Antibodies to HCV not detected. Does NOT exclude the possibility of recent exposure to HCV. Equivocal: Equivocal for HCV antibodies. Supplemental molecular testing will be automatically performed to determine infection status in accordance with current CDC screening recommendations. Reactive: Positive for HCV antibodies. This may represent current or past HCV infection. Supplemental molecular testing will be automatically performed to determine current infection status in accordance with current CDC screening recommendations. Interpretive data was last revised on 2019. HepBsAg Nonreactive Nonreactive [facility] Blood 09/08/2023 11:0 5 AM PLATE PUT IN WORKER 09/08/2023 11:13 AM PLATE PUT IN WORKER Duc Chapa MD LAB MICROBIOLOGY - GENERAL O RDERABLES Final Result [facility] [address] Department of Laboratories [place], [place] [phone] from Last 3 Months or Most Recently Relevant to Health Maintenance Insurance [facility] HMO [facility] Care Teams [employer] Developer Relationship Specialty Start Date End Date Jacobo Thompson MD [address] [facility] [address] [place] [address] PCP - General Internal Medicine 04/14/23 [place] [id number] [address] Consulting Physician Urology 08/15/23 Mark Adrian MD [address] [facility] [address] [place] [address] [address] [place] [address] Consulting Physician Urology 08/15/23 Duc Chapa MD [address] [place] [address] Medical Oncologist/Community Development Specialist Hematology and Oncology 08/15/23
--- OUTSIDE RECORDS SUMMARY | 2024-09-01 12:25 | XMS_ITS | Clinical Summary ---
Author Organization [facility] Address [address] [place] [address] Care Team Providers Care Kitchen Food Assembler Name Role Phone Jacobo Thompson MD Primary Care Provider Blair Doherty MD Unavailable [phone] Mark Adrian MD Unavailable [phone] Duc Chapa MD Unavailable [phone] Allergies No known active allergies Medications rosuvastatin (CRESTOR) 40 mg tablet Take 1 tablet (40 mg total) by mouth daily Active levothyroxine (SYNTHROID) 100 mcg tablet Take 1 tablet (100 mcg total) by mouth nursing admin before breakfast Active darolutamide (Nubeqa) 300 mg [...] Noted Date Diagnosed Date Prostate cancer 08/26/2023 Encounters Date Type Department Care Team Description 07/06/2024 2:30 PM HEMATOLOGIST ONCOLOGIST Office Visit [facility] [address] [place] [phone] Duc Chapa MD Prostate cancer (HCC) 07/06/2024 2:00 PM HEMATOLOGIST ONCOLOGIST Lab [facility] [address] [place] [phone] Prostate cancer (HCC) 07/05/2024 6:42 AM HEMATOLOGIST ONCOLOGIST - 07/05/2024 11:59 PM HEMATOLOGIST ONCOLOGIST Hospital Encounter [facility] [address] [place] [phone] Duc Chapa MD Prostate cancer ([facility]) Discharge Disposition: Discharge to home or self care from Last 3 Months Immunizations Name Administration Dates Next Due Influenza, Trivalent, Preservative Free, Intramu scular 04/20/2024 Surgical History Surgery Date Site/Laterality Comments COSMETIC SURGERY Social History Tobacco Use Types Packs/Day Years Used Date Smoking Tobacco: Never Assessed Sex and Gender Information Value Date Recorded Sex Assigned at Not on file Legal Sex Male 3:06 AM HEMATOLOGIST ONCOLOGIST Gender Identity Not on file Sexual Orientation Not on file Obstetrics History Last Filed Vital Signs Vital Sign Reading Time Taken Comments Blood Pressure 128/77 07/06/2024 2:17 PM HEMATOLOGIST ONCOLOGIST Pulse 77 07/06/2024 2:17 PM HEMATOLOGIST ONCOLOGIST Temperature 36.1 C (96.9 F) 07/06/2024 2:17 PM HEMATOLOGIST ONCOLOGIST Respiratory Rate 18 07/06/2024 2:17 PM HEMATOLOGIST ONCOLOGIST Oxygen Saturation 100% 07/06/2024 2:17 PM HEMATOLOGIST ONCOLOGIST Inhaled Oxygen Concentration - - Weight 81.5 kg (179 lb 9.6 oz) 07/06/2024 2:17 P M HEMATOLOGIST ONCOLOGIST Height 177.8 cm (5' 10 ) 12/10/2023 11:42 AM CDT Body Mass Index 25.77 12/10/2023 11:42 AM CDT Plan of Treatment Health Maintenance Due Date Last Done Comments Colon Cancer Screening-Colonoscopy 1960 Depression Screening 1960 Pneumococcal vaccine <65 (1 of 2 - PCV) 1966 DTaP/Tdap/Td Vaccine (1 - Tdap) 1971 Hepatitis B Screening 1978 Regular Well Visit/Exam 18-64 1978 Zoster Vaccine (1 of 2) 1979 Covid-19 Vaccine (5 - 2023-2 5 season) 2024 04/28/2023, 07/11/2021, 12/11/2020, Additional history exists Prostate Cancer Screening-PSA 07/06/2026, 04/20/2024, 12/31/2023, Additional history exists Hepatitis C Screening Completed 09/08/2023 Influenza Vaccine Completed 04/20/2024, , 07/01/2022, Additional history exists Procedures Procedure Name Priority Date/Time Associated Diagnosis Comments EGFR Routine 07/06/2024 1:36 PM HEMATOLOGIST ONCOLOGIST Prostate cancer (HCC) DIFFERENTIAL AUTO Routine 07/06/2024 1:3 6 PM HEMATOLOGIST ONCOLOGIST Prostate cancer (HCC) CBC WITH AUTO DIFFERENTIAL Routine 07/06/2024 1:36 PM HEMATOLOGIST ONCOLOGIST Prostate cancer (HCC) COMPREHENSIVE METABOLIC PANEL Routine 07/06/2024 1:36 PM HEMATOLOGIST ONCOLOGIST Prostate cancer (HCC) PSA DIAGNOSTIC Routine 07/06/2024 1:36 PM HEMATOLOGIST ONCOLOGIST Prostate cancer (HCC) CT CHEST ABDOMEN PELVIS W CONTRAST Schedule Routine, Read Routine (OP Routine) 07/05/2024 7:20 AM HEMATOLOGIST ONCOLOGIST Prostate cancer (HCC) HEPATITIS PANEL, ACUTE Routine 09/08/2023 11:05 AM HEMATOLOGIST ONCOLOGIST Prostate cancer (HCC) from Last 3 Months or Most Recently Relevant to Health Maintenance Results * eGFR (07/06/2024 1:36 PM HEMATOLOGIST ONCOLOGIST) eGFR 87 >=60 mL/min/1. 73 m2 Comment: [...] last reviewed 2021. Blood 07/06/2024 1:36 PM HEMATOLOGIST ONCOLOGIST 07/06/2024 1:48 PM HEMATOLOGIST ONCOLOGIST Duc Chapa MD LAB BLOOD ORDERABLES Final R esult [facility] [address] [place] [address] * Differential, auto (07/06/2024 1:36 PM HEMATOLOGIST ONCOLOGIST) Neutrophil abs 3.9 1.5 - 6.5 K/cumm Imm gran abs 0.0 0.0 - 0.1 K/cumm [facility] Lymphocyte abs 1.8 0.8 - 3.3 K/cumm [facility] Monocyte abs 0.6 0.2 - 0.8 K/cumm [facility] Eosinophil abs 0.2 0.0 - 0.5 K/cumm [facility] Basophil abs 0.1 0.0 - 0.1 K/cumm [facility] Neutrophil pct 59.1 % [facility] Comment: Interpretive Data Percent cell count reference ranges are not reported, since discordance with absolute values may lead to misinterpretation of CBC data. Current Interpretive Data was last revised on 2017. Imm gran pct 0.3 % [facility] Comment: Interpretive Data Percent cell count reference ranges are not reported, since discordance with absolute values may lead to misinterpretation of CBC data. Current Interpretive Data was last revised on 2017. Lymphocyte pct 27.3 % [facility] Comment: Interpretive Data Percent cell count reference ranges are not reported, since discordance with absolute values may lead to misinterpretation of CBC data. Current Interpretive Data was last revised on 2017. Monocyte pct 9.0 % [facility] Comment: Interpretive Data Percent cell count reference ranges are not reported, since discordance with absolute values may lead to misinterpretation of CBC data. Current Interpretive Data was last revised on 2017. Eosinophil pct 3.5 % [facility] Comment: Interpretive Data Percent cell count reference ranges are not reported, since discordance with absolute values may lead to misinterpretation of CBC data. Current Interpretive Data was last revised on 2017. Basophil pct 0.8 % [facility] Comment: Interpretive Data Percent cell count reference ranges are not reported, since discordance with absolute values may lead to misinterpretation of CBC data. Current Interpretive Data was last revised on 2017. Blood 07/06/2024 1:36 PM HEMATOLOGIST ONCOLOGIST 07/06/2024 1:36 PM HEMATOLOGIST ONCOLOGIST Duc Chapa MD LAB BLOOD ORDERABLES Final R esult [facility] [address] Department [place] [address] * CBC with auto differential (07/06/2024 1:36 PM HEMATOLOGIST ONCOLOGIST) WBC 6.5 3.8 - 9.9 K/cumm Hgb 13.7 13.0 - 17.5 g/dL [facility] Hct 39.5 38.9 - 50.3 % [facility] Plt 217 150 - 400 K/cumm [facility] MPV 9.9 9.1 - 12.3 fL [facility] RBC 4.49 4.30 - 5.80 M/cumm [facility] MCV 88.0 81.3 - 96.4 fL [facility] MCH 30.5 27.1 - 33.3 pg [facility] MCHC 34.7 32.3 - 35.7 g/dL [facility] RDW CV 13.0 11.1 - 14.9 % [facility] RDW SD 41.8 35.7 - 48.1 fL [facility] NRBC abs 0.00 0.00 - 0.01 K/cumm [facility] Blood 07/06/2024 1:36 PM HEMATOLOGIST ONCOLOGIST 07/06/2024 1:36 PM HEMATOLOGIST ONCOLOGIST Duc Chapa MD LAB BLOOD ORDERABLES Final R esult Performing Organization Address [facility] Co de Phone Number [facility] [address] [place], [place] [id number] * PSA diagnostic (07/06/2024 1:36 PM HEMATOLOGIST ONCOLOGIST) PSA-Total 0.08 <=5.40 ng/mL Comment: Interpretive Data [...] last revised 21. Blood 07/06/2024 1:36 PM HEMATOLOGIST ONCOLOGIST 07/06/2024 1:48 PM HEMATOLOGIST ONCOLOGIST Duc Chapa MD LAB BLOOD ORDERABLES Final R esult Performing Organization Address City/[facility]/ZIP Co de Phone Number [facility] [address] Department [place] [place], [place] [id number] * Comprehensive metabolic panel (07/06/2024 1:36 PM HEMATOLOGIST ONCOLOGIST) Sodium 140 135 - 145 mmol/L Potassium, pl 4.3 3.3 - 4.9 mmol/L [facility] Chloride 102 97 - 110 mmol/L [facility] CO2 28 22 - 32 mmol/L [facility] Anion gap 10 2 - 15 mmol/L [facility] BUN 12 6 - 25 mg/dL [facility] Creatinine 0.98 0.80 - 1.30 mg/dL [facility] Glucose 88 70 - 199 mg/dL [facility] Comment: Interpretive Data Fasting glucose >/= 126 [...] 2022. Calcium 9.7 8.5 - 10.3 mg/dL [facility] Bilirubin, total 0.2 0.1 - 1.2 mg/dL [facility] Protein, pl 6.7 6.5 - 8.5 g/dL [facility] Albumin 4.5 3.5 - 5.0 g/dL [facility] Alk phos 73 40 - 130 Units/L [facility] ALT 22 7 - 55 Units/L [facility] AST 26 10 - 50 Units/L [facility] Comment:Slightly Hemolyzed S pecimen Blood 07/06/2024 1:36 PM HEMATOLOGIST ONCOLOGIST 07/06/2024 1:48 PM HEMATOLOGIST ONCOLOGIST Duc Chapa MD LAB BLOOD ORDERABLES Final R esult [facility] [address] Department [place] [address] * CT Chest Abdomen Pelvis W Contrast (07/05/2024 7:20 AM HEMATOLOGIST ONCOLOGIST) Anatomical Region Laterality Modality Body N/A Computed Tomogra phy 07/05/2024 8:59 AM HEMATOLOGIST ONCOLOGIST Impressions 07/05/2024 8:59 AM HEMATOLOGIST ONCOLOGIST 1. No evidence of progression. 2. Stable partially calcified aortopulmonary lymph node and 1 cm right hilar lymph node. 3. Similar appearance of osseous metastases. Electronically signed by: Gilson Kumar M.D. Narrative 07/05/2024 8:59 AM HEMATOLOGIST ONCOLOGIST EXAMINATION: CT of the chest abdomen and [...] by: Gilson Kumar M.D. Duc Chapa MD IMG CT PROCEDURES Final Resu lt * Hepatitis panel, acute Blood (09/08/2023 11:05 AM HEMATOLOGIST ONCOLOGIST) Hep A IgM Nonreactive Nonreactive [facility] Comment: Interpretive Data: If Hep A IgM Ab is reported as Equivocal, a new sample should be drawn in two weeks for testing. Current interpretive data was last revised on 19. Hep B core IgM Nonreactive Nonreactive [facility] Comment: Interpretive Data If HepB Core IgM Ab is reported as Equivocal, a new sample should be drawn in two weeks for testing. Current interpretive data was last revised on 19. Hep C Ab Nonreactive Nonreactive [facility] Comment: Interpretive Data Nonreactive: Antibodies to HCV [...] last revised on 2019. HepBsAg Nonreactive Nonreactive [facility] Blood 09/08/2023 11:0 5 AM HEMATOLOGIST ONCOLOGIST 09/08/2023 11:13 AM HEMATOLOGIST ONCOLOGIST Duc Chapa MD LAB MICROBIOLOGY - GENERAL O RDERABLES Final Result [facility] [address] Department [email or web address] [address] from Last 3 Months or Most Recently Relevant to Health Maintenance Insurance [facility] Care Teams Kitchen Food Assembler Relationship Specialty Start Date End Date Jacobo Thompson MD [address] [place] [address] PCP - General Internal Medicine 04/14/23 [place] [id number] [place] [address] Consulting Physician Urology 08/15/23 Mark Adrian MD [address] [place] [address] Consulting Physician Urology 08/15/23 Duc Chapa MD [address] [place] [address] Medical Oncologist/Food Science Technician Hematology and Oncology 08/15/23
--- OUTSIDE RECORDS SUMMARY | 2024-09-01 12:25 | XMS_ITS | Data Portability ---
Author Organization [facility], Main Office Address [address] [place] [address] Assessment No assessment recorded. Plan of Treatment Reminders Order Date Submit Date Provider Last Modified By Organization Details Last Modified Time Details Appointments None recorded. Lab None recorded. Referral None recorded. Procedures None recorded. Surgeries None recorded. Imaging None recorded. Medication Orders ciprofloxac in 500 mg tablet 2022 023 [email or web address] [id number], [address], [place], [address], 3 11:28:08 Patient TargetsNo targets recorded. Patient Instructions Encounter Date Encounter Id Patient Instructions Last Modified By Organization Details Last Modified Time 04/08/2023 [id number] Possible prostatitis. Will cover with some Cipro 500 mg twice daily for one week. If no improvement will need urological referral. Portions of the record may have been created with voice recognition software. Occasional wrong-word or [id number] substitutions may have occurred due to the inherent limitations of voice recognition software. Read the chart carefully and recognize, using context, where substitutions have occurred. [email or web address] Not available 04/08/2023 11:28:16 Reason for Referral None Reported. Results Created Date Observation Date Name Description Value Unit Range Abnormal Flag Note LastModifiedBy Organization Detail LastModifiedTime 12/30/19 22 12/30/2021 PSA, TOTAL PSA, total 2.82 NG/mL < or = 4.00 normal The total PSA value from this assay syste m is stand ardiz ed again st the WHO stand marc. The test resul t will be appro ximat peter 20% lower when enio red to the equim olar- stand ardiz ed total PSA (Kincaid man Coult er). Enio rison of seria l PSA resul ts shoul d be inter prete d with this fact in mind. This test was perfo rmed using the [employer] chemi lumin escen t metho d. Value s obtai rosa from diffe rent assay metho ds canno t be used inter simpson eably . PSA level s, regar dless of value , shoul d not be inter prete d as absol iliamna evide nce of the prese nce or absen ce of disea se. Not Available [address], [address], 12/30/2021 09:53:11 12/30/19 22 12/30/2021 CBC (INCL UDES DIFF/ PLT) white blood cell count 5.1 thous and/u L 3.8-10 .8 normal Not Available [address], [address], 12/30/2021 09:53:10 12/30/19 22 12/30/2021 CBC (INCL UDES DIFF/ PLT) red blood cell count 4.91 bianca on/uL 4.20-5 .80 normal Not Available [address], [address], 12/30/2021 09:53:10 12/30/19 22 12/30/2021 CBC (INCL UDES DIFF/ PLT) hemoglobin 15.2 g/dL 13.2-1 7.1 normal Not Available [facility] [address], [address], 12/30/2021 09:53:10 12/30/19 22 12/30/2021 CBC (INCL UDES DIFF/ PLT) hematocrit 45.1 % 38.5-5 0.0 normal Not Available [facility] [address], [address], 12/30/2021 09:53:10 12/30/19 22 12/30/2021 CBC (INCL UDES DIFF/ PLT) MCV 91.9 fL 80.0-1 00.0 normal Not Available [address], [address], 12/30/2021 09:53:10 12/30/19 22 12/30/2021 CBC (INCL UDES DIFF/ PLT) MCH 31.0 pg 27.0-3 3.0 normal Not Available [address], [address], 12/30/2021 09:53:10 12/30/19 22 12/30/2021 CBC (INCL UDES DIFF/ PLT) MCHC 33.7 g/dL 32.0-3 6.0 normal Not Available [address], [address], 12/30/2021 09:53:10 12/30/19 22 12/30/2021 CBC (INCL UDES DIFF/ PLT) RDW 12.8 % 11.0-1 5.0 normal Not Available [address], [address], 12/30/2021 09:53:10 12/30/19 22 12/30/2021 CBC (INCL UDES DIFF/ PLT) platelet count 191 thous and/u L 140-40 0 normal Not Available [address], [address], 12/30/2021 09:53:10 12/30/19 22 12/30/2021 CBC (INCL UDES DIFF/ PLT) MPV 11.7 fL 7.5-12 .5 normal Not Available [address], [address], 12/30/2021 09:53:10 12/30/19 22 12/30/2021 CBC (INCL UDES DIFF/ PLT) absolute neutrophils 2887 cells /uL 1500-7 800 normal Not Available [address], [address], 12/30/2021 09:53:10 12/30/19 22 12/30/2021 CBC (INCL UDES DIFF/ PLT) absolute lymphocytes 1652 cells /uL 850-39 00 normal Not Available [address], [address], 12/30/2021 09:53:10 12/30/19 22 12/30/2021 CBC (INCL UDES DIFF/ PLT) absolute monocytes 321 cells /uL 200-95 0 normal Not Available [address] [place], [address], 12/30/2021 09:53:10 12/30/19 22 12/30/2021 CBC (INCL UDES DIFF/ PLT) absolute eosinophils 179 cells /uL 15-500 normal Not Available [address], [address], 12/30/2021 09:53:10 12/30/19 22 12/30/2021 CBC (INCL UDES DIFF/ PLT) absolute basophils 61 cells /uL 0-200 normal Not Available [address], [address], 12/30/2021 09:53:10 12/30/19 22 12/30/2021 CBC (INCL UDES DIFF/ PLT) neutrophils 56.6 % normal Not Available [address], [address], 12/30/2021 09:53:10 12/30/1912/30/2021 CBC (INCL UDES DIFF/ PLT) lymphocytes 32.4 % normal Not Available [address], [address], 12/30/2021 09:53:10 12/30/19 22 12/30/2021 CBC (INCL UDES DIFF/ PLT) monocytes 6.3 % normal Not Available [address], [address], 12/30/2021 09:53:10 12/30/19 22 12/30/2021 CBC (INCL UDES DIFF/ PLT) eosinophils 3.5 % normal Not Available [address], [address], 12/30/2021 09:53:10 12/30/19 22 12/30/2021 CBC (INCL UDES DIFF/ PLT) basophils 1.2 % normal Not Available [address], [address], 12/30/2021 09:53:10 12/30/19 22 12/30/2021 COMPR EHENS PADILLA METAB OLIC PANEL glucose 95 mg/dL 65-99 normal Fasti ng refer ence inter nini Not Available [address], [address], 12/30/2021 09:53:10 12/30/19 22 12/30/2021 COMPR EHENS PADILLA METAB OLIC PANEL urea nitrogen (BUN) 16 mg/dL 7-25 normal Not Available [address], [address], 12/30/2021 09:53:10 12/30/19 22 12/30/2021 COMPR EHENS PADILLA METAB OLIC PANEL creatinine 0.98 mg/dL 0.70-1 .25 normal For patie nts >49 years of age, the refer ence limit for Creat inine is appro ximat peter 13% highe r for peopl e ident ified as Afric an-Am nora n. Not Available [address], [address], 12/30/2021 09:53:10 12/30/19 22 12/30/2021 COMPR EHENS PADILLA METAB OLIC PANEL eGFR non-afr. equatorial guinean 83 mL/mi n/1.7 3m2 > or = 60 normal Not Available [address], [address], 12/30/2021 09:53:10 12/30/19 22 12/30/2021 COMPR EHENS PADILLA METAB OLIC PANEL eGFR 96 mL/mi n/1.7 3m2 > or = 60 normal Not Available [address], [address], 12/30/2021 09:53:10 12/30/19 22 12/30/2021 COMPR EHENS PADILLA METAB OLIC PANEL BUN/creatini ne ratio not applic able (calc ) 6-22 Not Available [address], [address], 12/30/2021 09:53:10 12/30/19 22 12/30/2021 COMPR EHENS PADILLA METAB OLIC PANEL sodium 142 mmol/ L 135-14 6 normal Not Available [address], [address], 12/30/2021 09:53:10 12/30/19 22 12/30/2021 COMPR EHENS PADILLA METAB OLIC PANEL potassium 4.8 mmol/ L 3.5-5. 3 normal Not Available [address], [address], 12/30/2021 09:53:10 12/30/19 22 12/30/2021 COMPR EHENS PADILLA METAB OLIC PANEL chloride 106 mmol/ L 98-110 normal Not Available [address], [address], 12/30/2021 09:53:10 12/30/19 22 12/30/2021 COMPR EHENS PADILLA METAB OLIC PANEL carbon dioxide 30 mmol/ L 20-32 normal Not Available [address], [address], 12/30/2021 09:53:10 12/30/19 22 12/30/2021 COMPR EHENS PADILLA METAB OLIC PANEL calcium 9.3 mg/dL 8.6-10 .3 normal Not Available [address], [address], 12/30/2021 09:53:10 12/30/19 22 12/30/2021 COMPR EHENS PADILLA METAB OLIC PANEL protein, total 6.7 g/dL 6.1-8. 1 normal Not Available [address], [address], 12/30/2021 09:53:10 12/30/19 22 12/30/2021 COMPR EHENS PADILLA METAB OLIC PANEL albumin 4.5 g/dL 3.6-5. 1 normal Not Available [address], [address], 12/30/2021 09:53:10 12/30/19 22 12/30/2021 COMPR EHENS PADILLA METAB OLIC PANEL globulin 2.2 g/dL_ (calc ) 1.9-3. 7 normal Not Available [facility] [address], [address], 12/30/2021 09:53:10 12/30/19 22 12/30/2021 COMPR EHENS PADILLA METAB OLIC PANEL albumin/glob ulin ratio 2.0 (calc ) 1.0-2. 5 normal Not Available [address], [address], 12/30/2021 09:53:10 12/30/19 22 12/30/2021 COMPR EHENS PADILLA METAB OLIC PANEL bilirubin, total 0.6 mg/dL 0.2-1. 2 normal Not Available [address], [address], 12/30/2021 09:53:10 12/30/19 22 12/30/2021 COMPR EHENS PADILLA METAB OLIC PANEL alkaline phosphatase 53 U/L 35-144 normal Not Available [facility] [address] [place], [address], 12/30/2021 09:53:10 12/30/19 22 12/30/2021 COMPR EHENS PADILLA METAB OLIC PANEL AST 19 U/L 10-35 normal Not Available [address], [address], 12/30/2021 09:53:10 12/30/19 22 12/30/2021 COMPR EHENS PADILLA METAB OLIC PANEL ALT 20 U/L 9-46 normal Not Available [address], [address], 12/30/2021 09:53:10 12/30/19 22 12/30/2021 TSH+F REE T4 TSH 1.26 mIU/L 0.40-4 .50 normal Not Available [address], [address], 12/30/2021 09:53:09 12/30/19 22 12/30/2021 TSH+F REE T4 T4, free 1.8 NG/dL 0.8-1. 8 normal Not Available [address], [address], 12/30/2021 09:53:09 12/30/19 22 12/30/2021 LIPID PANEL , STAND MARC cholesterol, total 168 mg/dL <200 normal Not Available [address], [address], 12/30/2021 09:53:09 12/30/19 22 12/30/2021 LIPID PANEL , STAND MARC HDL cholesterol 63 mg/dL > or = 40 normal Not Available [address], [address], 12/30/2021 09:53:09 12/30/19 22 12/30/2021 LIPID PANEL , STAND MARC triglyceride s 33 mg/dL <150 normal Not Available [address] [place], [address], 12/30/2021 09:53:09 12/30/19 22 12/30/2021 LIPID PANEL , STAND MARC LDL-choleste rol 95 mg/dL _(germán c) normal Refer ence range : <100 Barbi able range <100 mg/dL for prima ry preve ntion ; <70 mg/dL for patie nts with CHD or diabe tic patie nts with > or = 2 CHD risk facto rs. LDL-C is now calcu lated using the Ju n-Hop kins calcu latio n, which is a valid ated novel paulo d provi mitchel turner r accur acy than the Fried aldair equat ion in the estim ation of LDL-C . Ju moy SS et al. HORTENCIA. 2013; 310(1 9): 2061- 2068 (http ://ed ucati on.Qu raulVASS [employer]. com/f aq/FA Q164) Not Available [facility] [address], [place], [address], 12/30/2021 09:53:09 12/30/19 22 12/30/2021 LIPID PANEL , STAND MARC chol/HDLC ratio 2.7 (calc ) <5.0 normal Not Available [facility] [address] [place], [address], 12/30/2021 09:53:09 12/30/19 22 12/30/2021 LIPID PANEL , STAND MARC non HDL cholesterol 105 mg/dL _(germán c) <130 normal For patie nts with diabe dimitrios plus 1 major ASCVD risk facto r, treat ing to a non-H DL-C goal of <100 mg/dL (LDL- C of <70 mg/dL ) is radha hanks c optio n. Not Available [facility] [address] [place], [address], 12/30/2021 09:53:09 09/14/19 23 09/15/2022 COMPR EHENS PADILLA METAB OLIC PANEL glucose 93 mg/dL 65-99 normal Fasti ng refer ence inter nini Not Available [address] [address] [place], [address], 09/15/2022 10:46:31 09/14/19 23 09/15/2022 COMPR EHENS PADILLA METAB OLIC PANEL urea nitrogen (BUN) 16 mg/dL 7-25 normal Not Available [address], [address], 09/15/2022 10:46:31 09/14/19 23 09/15/2022 COMPR EHENS PADILLA METAB OLIC PANEL creatinine 0.96 mg/dL 0.70-1 .35 normal Not Available [address], [address], 09/15/2022 10:46:31 09/14/19 23 09/15/2022 COMPR EHENS PADILLA METAB OLIC PANEL eGFR 89 mL/mi n/1.7 3m2 > or = 60 normal The eGFR is based on the CKD-E PI 2020 equat ion. To calcu late the new eGFR from a previ ous Creat inine or Cysta tin C resul t, go to https ://yaw mccray.yue muñoz/deepa color[place] s/ kdoqi /gfr% 5Fcal culat or Not Available [address] [address] [place], [address], 09/15/2022 10:46:31 09/14/19 23 09/15/2022 COMPR EHENS PADILLA METAB OLIC PANEL BUN/creatini ne ratio not applic able (calc ) 6-22 Not Available [address], [address], 09/15/2022 10:46:31 09/14/19 23 09/15/2022 COMPR EHENS PADILLA METAB OLIC PANEL sodium 140 mmol/ L 135-14 6 normal Not Available [address], [address], 09/15/2022 10:46:31 09/14/19 23 09/15/2022 COMPR EHENS PADILLA METAB OLIC PANEL potassium 4.3 mmol/ L 3.5-5. 3 normal Not Available [address], [address], 09/15/2022 10:46:31 09/14/19 23 09/15/2022 COMPR EHENS PADILLA METAB OLIC PANEL chloride 106 mmol/ L 98-110 normal Not Available [address], [address], 09/15/2022 10:46:31 09/14/19 23 09/15/2022 COMPR EHENS PADILLA METAB OLIC PANEL carbon dioxide 28 mmol/ L 20-32 normal Not Available [address], [address], 09/15/2022 10:46:31 09/14/19 23 09/15/2022 COMPR EHENS PADILLA METAB OLIC PANEL calcium 9.3 mg/dL 8.6-10 .3 normal Not Available [address], [address], 09/15/2022 10:46:31 09/14/19 23 09/15/2022 COMPR EHENS PADILLA METAB OLIC PANEL protein, total 6.6 g/dL 6.1-8. 1 normal Not Available [address], [address], 09/15/2022 10:46:31 09/14/19 23 09/15/2022 COMPR EHENS PADILLA METAB OLIC PANEL albumin 4.5 g/dL 3.6-5. 1 normal Not Available [address], [address], 09/15/2022 10:46:31 09/14/19 23 09/15/2022 COMPR EHENS PADILLA METAB OLIC PANEL globulin 2.1 g/dL_ (calc ) 1.9-3. 7 normal Not Available [address], [address], 09/15/2022 10:46:31 09/14/19 23 09/15/2022 COMPR EHENS PADILLA METAB OLIC PANEL albumin/glob ulin ratio 2.1 (calc ) 1.0-2. 5 normal Not Available [address], [address], 09/15/2022 10:46:31 09/14/19 23 09/15/2022 COMPR EHENS PADILLA METAB OLIC PANEL bilirubin, total 0.5 mg/dL 0.2-1. 2 normal Not Available [address], [address], 09/15/2022 10:46:31 09/14/19 23 09/15/2022 COMPR EHENS PADILLA METAB OLIC PANEL alkaline phosphatase 46 U/L 35-144 normal Not Available [address], [address], 09/15/2022 10:46:31 09/14/19 23 09/15/2022 COMPR EHENS PADILLA METAB OLIC PANEL AST 22 U/L 10-35 normal Not Available [address], [address], 09/15/2022 10:46:31 09/14/19 23 09/15/2022 COMPR EHENS PADILLA METAB OLIC PANEL ALT 24 U/L 9-46 normal Not Available [address], [address], 09/15/2022 10:46:31 09/14/19 23 09/15/2022 LIPID PANEL , STAND MARC cholesterol, total 152 mg/dL <200 normal Not Available [address], [address], 09/15/2022 10:46:31 09/14/19 23 09/15/2022 LIPID PANEL , STAND MARC HDL cholesterol 72 mg/dL > or = 40 normal Not Available [address], [address], 09/15/2022 10:46:31 09/14/19 23 09/15/2022 LIPID PANEL , STAND MARC triglyceride s 53 mg/dL <150 normal Not Available [address], [address], 09/15/2022 10:46:31 09/14/19 23 09/15/2022 LIPID PANEL , STAND MARC LDL-choleste rol 67 mg/dL _(germán c) normal Refer ence range : <100 Barbi able range <100 mg/dL for prima ry preve ntion ; <70 mg/dL for patie nts with CHD or diabe tic patie nts with > or = 2 CHD risk facto rs. LDL-C is now calcu lated using the Ju n-Hop kins calcu latjohn n, which is a valid ated novel ladonna nicholson acy than the Fried aldair equat ion in the estim ation of LDL-C . Ju moy SS et al. HORTENCIA. 2013; 310(1 9): 2061- 2068 (http ://ed ucati on.Kev Jenkins [employer] Corporationtrudy Zamzee. com/f aq/FA Q164) Not Available [address], [address], 09/15/2022 10:46:31 09/14/19 23 09/15/2022 LIPID PANEL , STAND MARC chol/HDLC ratio 2.1 (calc ) <5.0 normal Not Available [address], [address], 09/15/2022 10:46:31 09/14/19 23 09/15/2022 LIPID PANEL , STAND MARC non HDL cholesterol 80 mg/dL _(germán c) <130 normal For patie nts with diabe dimitrios plus 1 major ASCVD risk facto r, treat ing to a non-H DL-C goal of <100 mg/dL (LDL- C of <70 mg/dL ) is radha hernandez optio n. Not Available [address] [place], [address], 09/15/2022 10:46:31 04/07/2004/08/2023 URINA LYSIS , COMPL ETE W/REF JACKSON TO CULTU RE color YELLOW yellow normal Not Available [address] [address] [place], [address], 04/08/2023 03:16:09 04/07/2004/08/2023 URINA LYSIS , COMPL ETE W/REF JACKSON TO CULTU RE appearance CLEAR clear normal Not Available [address] [address] [place], [address], 04/08/2023 03:16:09 04/07/2004/08/2023 URINA LYSIS , COMPL ETE W/REF JACKSON TO CULTU RE specific gravity 1.018 1.001- 1.035 normal Not Available [address] [address] [place], [address], 04/08/2023 03:16:09 04/07/2004/08/2023 URINA LYSIS , COMPL ETE W/REF JACKSON TO CULTU RE pH 7.5 5.0-8. 0 normal Not Available [address] [address] [place], [address], 04/08/2023 03:16:09 04/07/2004/08/2023 URINA LYSIS , COMPL ETE W/REF JACKSON TO CULTU RE glucose NEGATI VE negati ve normal Not Available [address], [address], 04/08/2023 03:16:09 04/07/2004/08/2023 URINA LYSIS , COMPL ETE W/REF JACKSON TO CULTU RE bilirubin NEGATI VE negati ve normal Not Available [address], [address], 04/08/2023 03:16:09 04/07/20 23 04/08/2023 URINA LYSIS , COMPL ETE W/REF JACKSON TO CULTU RE ketones NEGATI VE negati ve normal Not Available [address] [address] [place], [address], 04/08/2023 03:16:09 04/07/20 23 04/08/2023 URINA LYSIS , COMPL ETE W/REF JACKSON TO CULTU RE occult blood TRACE negati ve abnormal Not Available [address], [address], 04/08/2023 03:16:09 04/07/20 23 04/08/2023 URINA LYSIS , COMPL ETE W/REF JACKSON TO CULTU RE protein NEGATI VE negati ve normal Not Available [address], [address], 04/08/2023 03:16:09 04/07/20 23 04/08/2023 URINA LYSIS , COMPL ETE W/REF JACKSON TO CULTU RE nitrite NEGATI VE negati ve normal Not Available [address], [address], 04/08/2023 03:16:09 04/07/20 23 04/08/2023 URINA LYSIS , COMPL ETE W/REF JACKSON TO CULTU RE leukocyte esterase NEGATI VE negati ve normal Not Available [address], [address], 04/08/2023 03:16:09 04/07/20 23 04/08/2023 URINA LYSIS , COMPL ETE W/REF JACKSON TO CULTU RE WBC NONE SEEN /hpf < or = 5 normal Not Available [facility] [address], [place], [address], 04/08/2023 03:16:09 04/07/20 23 04/08/2023 URINA LYSIS , COMPL ETE W/REF JACKSON TO CULTU RE RBC 3-10 /hpf < or = 2 abnormal Not Available [address], [address], 04/08/2023 03:16:09 04/07/20 23 04/08/2023 URINA LYSIS , COMPL ETE W/REF JACKSON TO CULTU RE squamous epithelial cells NONE SEEN /hpf < or = 5 normal Not Available [address], [address], 04/08/2023 03:16:09 04/07/20 23 04/08/2023 URINA LYSIS , COMPL ETE W/REF JACKSON TO CULTU RE bacteria NONE SEEN /hpf none seen normal Not Available [address], [address], 04/08/2023 03:16:09 04/07/20 23 04/08/2023 URINA LYSIS , COMPL ETE W/REF JACKSON TO CULTU RE hyaline cast NONE SEEN /lpf none seen normal Not Available [address], [address], 04/08/2023 03:16:09 04/07/2004/08/2023 URINA LYSIS , COMPL ETE W/REF JACKSON TO CULTU RE note This urine was asha zed for the prese nce of WBC, RBC, bacte sebastián, casts , and other forme d eleme nts. Only those eleme nts seen were repor vamsi. Not Available [address], [address], 04/08/2023 03:16:09 04/07/20 23 04/08/2023 REFLE XIVE URINE CULTU RE reflexive urine culture NO CULTU RE INDIC ATED Not Available [id number], [place], [address], 04/08/2023 03:16:10 07/23/19 24 07/23/2023 PET-C T, whole body scan No observ ation record ed. [address], [place], [address], 07/23/2023 17:47:42 Result Notes None recorded. Problems Name Problem SNOMED Code Status Onset Date Resolution Date Notes Provider Name and Address Organization Details Recorded Time Renewal of prescripti on Active 2021 Not Available [facility] 3 21:30:22 Hyperchole sterolemia 44093084 Completed 201804/30/2019 Not Available [facility] 3 21:30:22 Acute pharyngiti s 685849267 Active 2021 Not Available [facility] 3 21:30:22 Hypothyroi dism 41584154 Active 2018 Not Available [facility] 3 21:30:22 Hyperlipid emia 00645684 Active 2018 Not Available [facility] 3 21:30:22 Dystrophia unguium 75712140 Active 2020 Not Available [facility] 3 21:30:22 Increased frequency of urination 829555389 Active 2022 Marleni Herrera, MAREK null, [place] [facility] 3 16:17:57 Acute prostatiti s 06406167 Active 2022 Jacobo Thompson MD [address], [address], [place], [address] , [facility] 3 11:27:48 Malignant tumor of prostate 335128581 Active 2022 Jacobo Thompson MD [address], [address], [place], [address] , [facility] 3 15:02:58 Conjunctiv itis 9473679 Active 2023 Jacobo Thompson MD [address], [address], [place], [address] , [place] - [facility] 13:18:36 Problem Notes None recorded. Procedures Surgical History None recorded. Imaging Results Imaging Date Name Status LastModified by Organiz ation Details LastModified Time 07/23/2023 PET-CT, whole body scan completed [address], [place], [address], 07/23/2023 17:47:42 Procedure Notes None recorded. Medical Equipment None Reported. Medications Name Sig Start Date Stop Date Status Note LastModified by Organization Details LastModified Time amoxicillin 500 mg capsule Take 1 capsule every 8 hours by oral route. active Not Available Not Available No t Available atorvastati n 40 mg tablet Take 1 tablet every day by oral route. 07/12 completed Not Available Not Available Not Available atorvastati n 20 mg tablet TAKE 1 TABLET DAILY active Not Available Not Available No t Available alendronate 70 mg tablet TAKE 1 TABLET BY MOUTH ONCE WEEKLY active Not Available Not Available No t Available Zithromax Z-Toi 250 mg tablet TAKE 2 TABLETS (500 MG) BY ORAL ROUTE ONCE DAILY FOR 1 DAY THEN 1 TABLET (250 MG) BY ORAL ROUTE ONCE DAILY FOR 4 DAYS 08/17 completed Not Available Not Available Not Available prochlorper azine maleate 10 mg tablet TAKE 1 TABLET BY MOUTH EVERY 6 HOURS NEEDED FOR NAUSEA OR VOMITING. active Not Available Not Available No t Available ciprofloxac in 500 mg tablet TAKE 1 TABLET BY MOUTH EVERY 12 HOURS active Not Available Not Available No t Available sulfamethox azole 800 mg-trimetho prim 160 mg tablet Take 1 tablet every 12 hours by oral route. active Not Available Not Available No t Available triamcinolo ne acetonide 0.1 % topical cream APPLY TO AFFECTED AREA TWICE A DAY NEEDED active Not Available Not Available No t Available levothyroxi ne 100 mcg tablet TAKE 1 TABLET BY MOUTH EVERY DAY active Not Available Not Available No t Available tamsulosin 0.4 mg capsule TAKE 1 CAPSULE BY MOUTH EVERYDAY AT BEDTIME active Not Available Not Available No t Available dexamethaso ne 4 mg tablet TAKE 2 TABLETS BY MOUTH TWICE A DAY WITH MEALS X 3 DAYS START THE DAY BEFORE CHEMOTHER APY active Not Available Not Available No t Available montelukast 10 mg tablet TAKE 1 TABLET BY MOUTH EVERY DAY AT NIGHT active Not Available Not Available No t Available doxycycline hyclate 100 mg tablet TAKE 1 TABLET BY MOUTH TWICE A DAY active Not Available Not Available No t Available tobramycin 0.3 %-dexametha sone 0.1 % eye drops,suspe nsion INSTILL 1 DROP INTO AFFECTED EYE EVERY 6 HOURS active Not Available Not Available No t Available rosuvastati n 40 mg tablet TAKE 1 TABLET BY MOUTH EVERY DAY active Not Available Not Available No t Available Nubeqa 300 mg tablet active Not Available Not Available No t Available Vitals Date Recorded Body mass index (BMI) Body mass index (BMI) Body mass index (BMI) Body mass index (BMI) Body height Body height Body height Body height Oxygen saturation Oxygen saturation in Arterial blood by Pulse oximetry Oxygen saturation Oxygen saturation in Arterial blood by Pulse oximetry Oxygen saturation Oxygen saturation in Arterial blood by Pulse oximetry Heart rate Heart rate Heart rate Heart rate Body temperature Body temperature Body weight Body weight Body weight Body weight Systolic blood pressure Diastolic blood pressure Systolic blood pressure Diastolic blood pressure Systolic blood pressure Diastolic blood pressure Systolic blood pressure Diastolic blood pressure Provider Name and Address Organization Details Last Updated DateTime 3 25.1 kg/m2 26.6 kg/m2 23.8 kg/m2 23.9 kg/m2 177.8 cm 175.26 cm 175.26 cm 175.26 cm 98 % 98 % 99 % 99 % 96 % 96 % 60 /min 63 /min 76 /min 67 /min 97.7 [degF] 97.2 [degF] 80982.6 6 g 79948.6 3 g 39957.3 7 g 99730.9 6 g 110 mm[Hg] 80 mm[Hg] 122 mm[Hg] 78 mm[Hg] 116 mm[Hg] 60 mm[Hg] 122 mm[Hg] 60 mm[Hg] Not Available [facility] 3 21:29:57 Date Recorded Body height Body mass index (BMI) Body weight Heart rate Body temperature Oxygen saturation Oxygen saturation in Arterial blood by Pulse oximetry Systolic blood pressure Diastolic blood pressure Provider Name and Address Organization Details Last Updated DateTime 3 175.26 cm 24.8 kg/m2 90864.5 2 g 71 /min 97 [degF] 99 % 99 % 122 mm[Hg] 78 mm[Hg] Alyssa Vargas [place] - [facility] 3 11:06:36 Social History None recorded. Functional Status None recorded. Mental Status None recorded. Family History Nothing Reported Notes:Mother 78 CAD Father 80 CAD CA of prostate Two brothers one had thyroidectomy CA prostate(2) One sister living with metastatic CA of breast to brain and bone Medical History Condition Response BLINDNESS N NERVE DISEASE N RHEUMATIC FEVER N BLADDER PROBLEMS N KIDNEY STONES N MRSA N OTHER # 1 N POLIO N LUNG DISEASE/DISORDER N HISTORY OF DRUG ABUSE N RADIATION / CHEMOTHERAPY N COPD N Other # 2 N BLOOD DISEASES N EAR OR HEARING PROBLEMS N MUMPS N SHINGLES N DEPRESSION (INCLUDING POST ) N BOWEL PROBLEMS N STROKE/TIA N ULCERS N BENIGN PROSTATIC HYPERPLASIA N MEASLES N HYPOTENSION N MYOCARDIAL INFARCTION N OBESITY N GERD/NAUSEA N ANEURYSM N URINARY/BLADDER/KIDNEY PROBLEMS N CORONARY ARTERY DISEASE (CAD) N ADDICTION CONCERNS N ENDOMETRIOSIS N Impotence N USE OF BLOOD THINNERS N SKIN PROBLEMS N GASTROINTESTINAL DISORDER N PERIPHERAL VASCULAR DISEASE N MUSCLE,JOINT OR BONE PROBLEMS N GASTROINTESTINAL BLEEDING N BLOOD CLOTS N ASTHMA N CATARACTS N ERECTILE DYSFUNCTION N VARICOSITIES N GI PROBLEMS N Low Testosterone N INFERTILITY N AIDS/HIV N CHEMOTHERAPY / RADIATION N LIVER DISEASE N MALE HYPOGONADISM N HYPERTENSION N Deficiency N TOURETTE'S N ANXIETY DISORDER N BLOOD TRANSFUSION N ANEMIA/BLOOD DISORDER N CHRONIC EAR INFECTIONS N BRONCHITIS N TUBERCULOSIS N GLAUCOMA N FOOT PROBLEM N DIVERTICULITIS N CHICKENPOX N SLEEP APNEA N INFECTIOUS DISEASE N HEART ARRHYTHMIA N PROSTATE N INSOMNIA N HIGH CHOLESTEROL / HYPERLIPIDEMIA Y HYPERTHYROIDISM N EYE PROBLEMS N EDEMA N CHRONIC PAIN SYNDROME N HYPOTHYROIDISM Y CAROTID BLOCKAGE N CONSTIPATION N BACK / NECK PROBLEMS N HAVE YOU BEEN HOSPITALIZED OR SEEN IN [facility] IN THE PAST YEAR ? N ATHEROSCLEROSIS N BREAST PROBLEMS N DIALYSIS N ECZEMA N OSTEOPOROSIS N ARTHRITIS N NO SIGNIFICANT PAST MEDICAL HISTORY N APPENDICITIS N DIABETES, TYPE N BAD TEETH N ENT N HEARTBURN / REFLUX N AUTISM SPECTRUM DISORDER (ASD) N HEPATITIS / LIVER DISEASE N GOUT N SLEEP DISORDER N ALZHEIMER'S DISEASE N Brain Problems N HERPES N DEMENTIA N HEADACHES/MIGRAINES N SEIZURES/EPILEPSY N VASCULAR DISEASE N PACEMAKER N Blood Disorder N DIZZINESS N HEART DISEASE/HEART PROBLEMS N KIDNEY DISEASE N MULTIPLE SCLEROSIS N CARDIAC ARRHYTHMIA N CANCER: SPECIFY N ATRIAL FIBRILLATION N Gall Stones N PULMONARY EMBOLISM N AUTOIMMUNE DISEASE N Immunizations Vaccine Type Date Status Note Provider Nam e and Address Organization Details Recorded Time SARS-COV-2 (COVID-19) vaccine, UNSPECIFIED 1 completed Not Available [facility] 09/18/2022 21:32:23 SARS-COV-2 (COVID-19) vaccine, UNSPECIFIED 1 completed Not Available [facility] 09/18/2022 21:32:23 influenza, unspecified formulation 2 completed Not Available [facility] 09/18/2022 21:32:24 Past Encounters Encounter ID Performer Location Encounter Start Date Encounter Closed Date Diagnosis/Indication Diagnosis SNOMED-CT Code Diagnosis ICD10 Code Diagnosis Note [id number] _ALESSANDRO_M IGRATION_ DEFAULT_1 _1 , 10/13/2020 00:00:00 10/16/2020 20:53:50 [id number] [facility] [place] [address] [place] [address] y , [place] [address] 05/18/2021 00:00:00 05/18/2021 11:37:03 [id number] [facility] [place] [address] [place] [address] y , [place] [address] 11/30/2021 00:00:00 11/30/2021 11:10:10 [id number] [facility] [place] [address] [place] [address] y , [place] [address] 07/12/2022 00:00:00 07/12/2022 12:31:43 [id number] Jacobo Thompson MD [facility] [place] [address] [place] [address] y , [place] [address] 04/08/2023 10:42:39 04/08/2023 11:32:05 Acute prostatitis 13856055 N41.0 Health Concerns Section Related Observation LastModified by Organization Detai ls LastModified Time None Recorded Concern Status LastModified by Organization Details LastModified Time None Recorded Advance Directives Directive None Recorded Payers Encounter Date Sequence Insurance Name Policy Number Policy Mckeon Covered Member ID Mckeon Member ID Guarantor Name 04/08/2023 1 [employer] (POS) [id number] Darnell Woods [id number] Darnell Woods 04/08/2023 2 [facility] ([place] [id number] [place]in Woods [id number] Darnell Woods Notes Date Note Type Note Provider Name and Address Organization Details Recorded Time 04/08/2023 text/html Patient Name: Talat WoodsDate Of Service: Friday ( 04.08.2023 ): 1960 Age: 62 There has been approximately a 6 lb weight gain since 07/12/2022. This represents approximately a 3.7% change in weight. Weight change attributable to lifestyle changes. Vital Signs:Blood Pressure: Sitting Rt. Arm 122/78Pulse: Sitting 71 /min and RegularRespirations: 12Height 69 in or 1.8 mWeight 168 lb or 76.2 kgBMI 24.8Temperature: 97 F or 36.1 CPulse Oximetry: 99 % at rest on no oxygen Chief Complaint: Possible prostatitis Problems or conditions discussed in the HPI were the only ones reviewed during the encounter.Only social and family history addressed in the HPI were reviewed during this encounter. Attendant(s): NoneConstitutional and Systemic Symptoms: none Medication Reconciliation: from medication list. History of Present Illness #1. Complains of urgency frequency and some very mild dysuria. Urinalysis was essentially negative for any infection but has had problems with some nocturia recently probably likely prostate or even mild prostatitis. Will cover with some Cipro 500 mg twice daily to see there is any improvement. If none will need to consider further evaluation possible urological referral.:Medication List Reviewed and Reconciled 04/08/2023Synthroid 0.1 MG (TABLET - ORAL) One DailyRosuvastatin 40 MG CAPSULE One DailySocial HistoryDoes not smokeDrinks a six pack of beer per weekRetired mechanicFamily HistoryMother 78 CADFather 80 CAD CA of prostateTwo brothers one had thyroidectomy CA prostate(2)One sister living with metastatic CA of breast to brain and bone Jacobo Thompson MD [address] [facility], [facility] [address], [place], [address], [facility] [employer] 04/08/2023 11:28:31
[2024-09-01] MEDS: TETANUS,DIPHTHERIA,AC PERTUSSIS ADULT (0.5 ML) BOOSTRIX IM (14:28)
--- OUTSIDE RECORDS SUMMARY | 2024-09-01 14:47 | XMS_ITS | Clinical Summary ---
Author Organization [facility] Address [address] [place] [address] Care Team Providers Care Senior Online Marketing Manager Name Role Phone Jacobo Thompson MD Primary Care Provider Blair Doherty MD Unavailable [phone] Mark Adrian MD Unavailable [phone] Duc Chapa MD Unavailable [phone] Allergies No known active allergies Medications rosuvastatin (CRESTOR) 40 mg tablet Take 1 tablet (40 mg total) by mouth daily Active levothyroxine (SYNTHROID) 100 mcg tablet Take 1 tablet (100 mcg total) by mouth behavioral health associate before breakfast Active darolutamide (Nubeqa) 300 mg [...] Department Care Team Description 07/06/2024 2:30 PM PYTHON DEVELOPER Office Visit [facility] [address] [place] [phone] Duc Chapa MD Prostate cancer (HCC) 07/06/2024 2:00 PM PYTHON DEVELOPER Lab [facility] [address] [place] [phone] Prostate cancer (HCC) 07/05/2024 6:42 AM PYTHON DEVELOPER - 07/05/2024 11:59 PM PYTHON DEVELOPER Hospital Encounter [facility] - Imaging [address] [place] [phone] Duc Chapa MD Prostate cancer ([facility]) Discharge Disposition: Discharge to home or self [...] on file Legal Sex Male 3:06 AM PYTHON DEVELOPER Gender Identity Not on file Sexual Orientation Not on file Obstetrics History Last Filed Vital Signs Vital Sign Reading Time Taken Comments Blood Pressure 128/77 07/06/2024 2:17 PM PYTHON DEVELOPER Pulse 77 07/06/2024 2:17 PM PYTHON DEVELOPER Temperature 36.1 C (96.9 F) 07/06/2024 2:17 PM PYTHON DEVELOPER Respiratory Rate 18 07/06/2024 2:17 PM PYTHON DEVELOPER Oxygen Saturation 100% 07/06/2024 2:17 PM PYTHON DEVELOPER Inhaled Oxygen Concentration - - Weight 81.5 kg (179 lb 9.6 oz) 07/06/2024 2:17 P M PYTHON DEVELOPER Height 177.8 cm (5' 10 ) 12/10/2023 [...] Diagnosis Comments EGFR Routine 07/06/2024 1:36 PM PYTHON DEVELOPER Prostate cancer (HCC) DIFFERENTIAL AUTO Routine 07/06/2024 1:3 6 PM PYTHON DEVELOPER Prostate cancer (HCC) CBC WITH AUTO DIFFERENTIAL Routine 07/06/2024 1:36 PM PYTHON DEVELOPER Prostate cancer (HCC) COMPREHENSIVE METABOLIC PANEL Routine 07/06/2024 1:36 PM PYTHON DEVELOPER Prostate cancer (HCC) PSA DIAGNOSTIC Routine 07/06/2024 1:36 PM PYTHON DEVELOPER Prostate cancer (HCC) CT CHEST ABDOMEN PELVIS W CONTRAST Schedule Routine, Read Routine (OP Routine) 07/05/2024 7:20 AM PYTHON DEVELOPER Prostate cancer (HCC) HEPATITIS PANEL, ACUTE Routine 09/08/2023 11:05 AM PYTHON DEVELOPER Prostate cancer (HCC) from Last 3 Months or Most Recently Relevant to Health Maintenance Results * eGFR (07/06/2024 1:36 PM PYTHON DEVELOPER) eGFR 87 >=60 mL/min/1. 73 m2 Comment: [...] last reviewed 2021. Blood 07/06/2024 1:36 PM PYTHON DEVELOPER 07/06/2024 1:48 PM PYTHON DEVELOPER Duc Chapa MD LAB BLOOD ORDERABLES Final R esult [facility] [address] Department [place] [address] * Differential, auto (07/06/2024 1:36 PM PYTHON DEVELOPER) Neutrophil abs 3.9 1.5 - 6.5 K/cumm Imm gran abs 0.0 0.0 - 0.1 K/cumm [facility] Lymphocyte abs 1.8 0.8 - 3.3 K/cumm [facility] Monocyte abs 0.6 0.2 - 0.8 K/cumm [facility] Eosinophil abs 0.2 0.0 - 0.5 K/cumm [facility] Basophil abs 0.1 0.0 - 0.1 K/cumm [facility] Neutrophil pct 59.1 % [facility] Comment: Interpretive Data Percent cell count reference ranges are not reported, since discordance with absolute values may lead to misinterpretation of CBC data. Current Interpretive Data was last revised on 2017. Imm gran pct 0.3 % [facility] Comment: Interpretive Data Percent cell count reference ranges are not reported, since discordance with absolute values may lead to misinterpretation of CBC data. Current Interpretive Data was last revised on 2017. Lymphocyte pct 27.3 % [facility] Comment: Interpretive Data Percent cell count reference ranges are not reported, since discordance with absolute values may lead to misinterpretation of CBC data. Current Interpretive Data was last revised on 2017. Monocyte pct 9.0 % [facility] Comment: Interpretive Data Percent cell count reference ranges are not reported, since discordance with absolute values may lead to misinterpretation of CBC data. Current Interpretive Data was last revised on 2017. Eosinophil pct 3.5 % [facility] Comment: Interpretive Data Percent cell count reference ranges are not reported, since discordance with absolute values may lead to misinterpretation of CBC data. Current Interpretive Data was last revised on 2017. Basophil pct 0.8 % [facility] Comment: Interpretive Data Percent cell count reference ranges are not reported, since discordance with absolute values may lead to misinterpretation of CBC data. Current Interpretive Data was last revised on 2017. Blood 07/06/2024 1:36 PM PYTHON DEVELOPER 07/06/2024 1:36 PM PYTHON DEVELOPER Duc Chapa MD LAB BLOOD ORDERABLES Final R esult [facility] [address] Department [place] [address] * CBC with auto differential (07/06/2024 1:36 PM PYTHON DEVELOPER) WBC 6.5 3.8 - 9.9 K/cumm Hgb 13.7 13.0 - 17.5 g/dL [facility] Hct 39.5 38.9 - 50.3 % [facility] Plt 217 150 - 400 K/cumm [facility] MPV 9.9 9.1 - 12.3 fL [facility] RBC 4.49 4.30 - 5.80 M/cumm [facility] MCV 88.0 81.3 - 96.4 fL [facility] MCH 30.5 27.1 - 33.3 pg [facility] MCHC 34.7 32.3 - 35.7 g/dL [facility] RDW CV 13.0 11.1 - 14.9 % [facility] RDW SD 41.8 35.7 - 48.1 fL [facility] NRBC abs 0.00 0.00 - 0.01 K/cumm [facility] Blood 07/06/2024 1:36 PM PYTHON DEVELOPER 07/06/2024 1:36 PM PYTHON DEVELOPER Duc Chapa MD LAB BLOOD ORDERABLES Final R esult Performing Organization Address [facility] Co de Phone Number [facility] [address] [employer] [place], [place] [phone] * PSA diagnostic (07/06/2024 1:36 PM PYTHON DEVELOPER) PSA-Total 0.08 <=5.40 ng/mL Comment: Interpretive Data [...] last revised 21. Blood 07/06/2024 1:36 PM PYTHON DEVELOPER 07/06/2024 1:48 PM PYTHON DEVELOPER Duc Chapa MD LAB BLOOD ORDERABLES Final R esult Performing Organization Address City/[facility]/ZIP Co de Phone Number [facility] [address] Department [employer] [place], [place] [phone] * Comprehensive metabolic panel (07/06/2024 1:36 PM PYTHON DEVELOPER) Sodium 140 135 - 145 mmol/L Potassium, pl 4.3 3.3 - 4.9 mmol/L [facility] Chloride 102 97 - 110 mmol/L [facility] CO2 28 22 - 32 mmol/L [facility] Anion gap 10 2 - 15 mmol/L [facility] BUN 12 6 - 25 mg/dL [facility] Creatinine 0.98 0.80 - 1.30 mg/dL [facility] Glucose 88 70 - 199 mg/dL [facility] Comment: Interpretive Data Fasting glucose [...] 2022. Calcium 9.7 8.5 - 10.3 mg/dL [facility] Bilirubin, total 0.2 0.1 - 1.2 mg/dL [facility] Protein, pl 6.7 6.5 - 8.5 g/dL [facility] Albumin 4.5 3.5 - 5.0 g/dL [facility] Alk phos 73 40 - 130 Units/L [facility] ALT 22 7 - 55 Units/L [facility] AST 26 10 - 50 Units/L [facility] Comment:Slightly Hemolyzed S pecimen Blood 07/06/2024 1:36 PM PYTHON DEVELOPER 07/06/2024 1:48 PM PYTHON DEVELOPER Duc Chapa MD LAB BLOOD ORDERABLES Final R esult [facility] [address] Department [place] [address] * CT Chest Abdomen Pelvis W Contrast (07/05/2024 7:20 AM PYTHON DEVELOPER) Anatomical Region Laterality Modality Body N/A Computed Tomogra phy 07/05/2024 8:59 AM PYTHON DEVELOPER Impressions 07/05/2024 8:59 AM PYTHON DEVELOPER 1. No evidence of progression. 2. Stable partially calcified aortopulmonary lymph node and 1 cm right hilar lymph node. 3. Similar appearance of osseous metastases. Electronically signed by: Gilson Kumar M.D. Narrative 07/05/2024 8:59 AM PYTHON DEVELOPER EXAMINATION: CT of the chest abdomen and [...] Hepatitis panel, acute Blood (09/08/2023 11:05 AM PYTHON DEVELOPER) Hep A IgM Nonreactive Nonreactive [facility] Comment: Interpretive Data: If Hep A IgM Ab is reported as Equivocal, a new sample should be drawn in two weeks for testing. Current interpretive data was last revised on 19. Hep B core IgM Nonreactive Nonreactive [facility] Comment: Interpretive Data If HepB Core IgM Ab is reported as Equivocal, a new sample should be drawn in two weeks for testing. Current interpretive data was last revised on 19. Hep C Ab Nonreactive Nonreactive [facility] Comment: Interpretive Data Nonreactive: Antibodies to HCV [...] last revised on 2019. HepBsAg Nonreactive Nonreactive [facility] Blood 09/08/2023 11:0 5 AM PYTHON DEVELOPER 09/08/2023 11:13 AM PYTHON DEVELOPER Duc Chapa MD LAB MICROBIOLOGY - GENERAL O RDERABLES Final Result [facility] [address] Department [place] [address] from Last 3 Months or Most Recently Relevant to Health Maintenance Insurance [facility] Care Teams Senior Online Marketing Manager Relationship Specialty Start Date End Date Jacobo Thompson MD [address] [place] [address] PCP - General Internal Medicine 04/14/23 [place] [address] [place] [address] Consulting Physician Urology 08/15/23 Mark Adrian MD [address] [place] [address] Consulting Physician Urology 08/15/23 Duc Chapa MD [address] [place] [address] Medical Oncologist/Card Writer Hand Hematology and Oncology 08/15/23
--- OUTSIDE RECORDS SUMMARY | 2024-09-01 14:47 | XMS_ITS | Referral Summary ---
Author Organization [facility] Address [address] [place] [address] Care Team Providers Care Privacy Officer Name Role Phone Jacobo Thompson MD Primary Care Provider Blair Doherty MD Unavailable [phone] Mark Adrian MD Unavailable [phone] Duc Chapa MD Unavailable [phone] Encounters Date Type Department Care Team Description 07/06/2024 2:00 PM COMPUTER NETWORKER Lab [facility] Lab [address] [place] [phone] Prostate cancer (HCC) 07/06/2024 2:30 PM COMPUTER NETWORKER Office Visit [facility] [address] [place] [phone] Duc Chapa MD Prostate cancer (HCC) 07/05/2024 6:42 AM COMPUTER NETWORKER - 07/05/2024 11:59 PM COMPUTER NETWORKER Hospital Encounter [facility] - Imaging [address] [place] [phone] Duc Chapa MD Prostate cancer (HCC) Discharge Disposition: Discharge to home or self care from Last 3 Months Allergies No known active allergies Medications rosuvastatin (CRESTOR) 40 mg tablet Take 1 tablet (40 mg total) by mouth daily Active levothyroxine (SYNTHROID) 100 mcg tablet Take 1 tablet (100 mcg total) by mouth antisqueak worker before breakfast Active darolutamide (Nubeqa) 300 mg [...] on file Legal Sex Male 3:06 AM COMPUTER NETWORKER Gender Identity Not on file Sexual Orientation Not on file Last Filed Vital Signs Vital Sign Reading Time Taken Comments Blood Pressure 128/77 07/06/2024 2:17 PM COMPUTER NETWORKER Pulse 77 07/06/2024 2:17 PM COMPUTER NETWORKER Temperature 36.1 C (96.9 F) 07/06/2024 2:17 PM COMPUTER NETWORKER Respiratory Rate 18 07/06/2024 2:17 PM COMPUTER NETWORKER Oxygen Saturation 100% 07/06/2024 2:17 PM COMPUTER NETWORKER Inhaled Oxygen Concentration - - Weight 81.5 kg (179 lb 9.6 oz) 07/06/2024 2:17 P M COMPUTER NETWORKER Height 177.8 cm (5' 10 ) 12/10/2023 11:42 AM CDT Body Mass Index 25.77 12/10/2023 11:42 AM CDT Plan of Treatment Not on file Procedures Procedure Name Priority Date/Time Associated Diagnosis Comments EGFR Routine 07/06/2024 1:36 PM COMPUTER NETWORKER Prostate cancer (HCC) DIFFERENTIAL AUTO Routine 07/06/2024 1:3 6 PM COMPUTER NETWORKER Prostate cancer (HCC) CBC WITH AUTO DIFFERENTIAL Routine 07/06/2024 1:36 PM COMPUTER NETWORKER Prostate cancer (HCC) COMPREHENSIVE METABOLIC PANEL Routine 07/06/2024 1:36 PM COMPUTER NETWORKER Prostate cancer (HCC) PSA DIAGNOSTIC Routine 07/06/2024 1:36 PM COMPUTER NETWORKER Prostate cancer (HCC) CT CHEST ABDOMEN PELVIS W CONTRAST Schedule Routine, Read Routine (OP Routine) 07/05/2024 7:20 AM COMPUTER NETWORKER Prostate cancer (HCC) HEPATITIS PANEL, ACUTE Routine 09/08/2023 11:05 AM COMPUTER NETWORKER Prostate cancer (HCC) from Last 3 Months or Most Recently Relevant to Health Maintenance Results * eGFR (07/06/2024 1:36 PM COMPUTER NETWORKER) eGFR 87 >=60 mL/min/1. 73 m2 Comment: [...] last reviewed 2021. Blood 07/06/2024 1:36 PM COMPUTER NETWORKER 07/06/2024 1:48 PM COMPUTER NETWORKER Duc Chapa MD LAB BLOOD ORDERABLES Final R esult [facility] [address] [place] [address] * Differential, auto (07/06/2024 1:36 PM COMPUTER NETWORKER) Neutrophil abs 3.9 1.5 - 6.5 K/cumm Imm gran abs 0.0 0.0 - 0.1 K/cumm [facility] Lymphocyte abs 1.8 0.8 - 3.3 K/cumm [facility] Monocyte abs 0.6 0.2 - 0.8 K/cumm [facility] Eosinophil abs 0.2 0.0 - 0.5 K/cumm [facility] Basophil abs 0.1 0.0 - 0.1 K/cumm [facility] Neutrophil pct 59.1 % [facility] Comment: Interpretive Data Percent cell count reference ranges are not reported, since discordance with absolute values may lead to misinterpretation of CBC data. Current Interpretive Data was last revised on 2017. Imm gran pct 0.3 % [facility] Comment: Interpretive Data Percent cell count reference ranges are not reported, since discordance with absolute values may lead to misinterpretation of CBC data. Current Interpretive Data was last revised on 2017. Lymphocyte pct 27.3 % [facility] Comment: Interpretive Data Percent cell count reference ranges are not reported, since discordance with absolute values may lead to misinterpretation of CBC data. Current Interpretive Data was last revised on 2017. Monocyte pct 9.0 % [facility] Comment: Interpretive Data Percent cell count reference ranges are not reported, since discordance with absolute values may lead to misinterpretation of CBC data. Current Interpretive Data was last revised on 2017. Eosinophil pct 3.5 % [facility] Comment: Interpretive Data Percent cell count reference ranges are not reported, since discordance with absolute values may lead to misinterpretation of CBC data. Current Interpretive Data was last revised on 2017. Basophil pct 0.8 % [facility] Comment: Interpretive Data Percent cell count reference ranges are not reported, since discordance with absolute values may lead to misinterpretation of CBC data. Current Interpretive Data was last revised on 2017. Blood 07/06/2024 1:36 PM COMPUTER NETWORKER 07/06/2024 1:36 PM COMPUTER NETWORKER Result [facility] Duc Chapa MD LAB BLOOD ORDERABLES Final R esult Performing Organization Address City/[facility] Co de Phone Number [facility] [address] Department [employer] [place], [place] [id number] * CBC with auto differential (07/06/2024 1:36 PM COMPUTER NETWORKER) WBC 6.5 3.8 - 9.9 K/cumm Hgb 13.7 13.0 - 17.5 g/dL [facility] Hct 39.5 38.9 - 50.3 % [facility] Plt 217 150 - 400 K/cumm [facility] MPV 9.9 9.1 - 12.3 fL [facility] RBC 4.49 4.30 - 5.80 M/cumm [facility] MCV 88.0 81.3 - 96.4 fL [facility] MCH 30.5 27.1 - 33.3 pg [facility] MCHC 34.7 32.3 - 35.7 g/dL [facility] RDW CV 13.0 11.1 - 14.9 % [facility] RDW SD 41.8 35.7 - 48.1 fL [facility] NRBC abs 0.00 0.00 - 0.01 K/cumm [facility] Blood 07/06/2024 1:36 PM COMPUTER NETWORKER 07/06/2024 1:36 PM COMPUTER NETWORKER Result [facility] Duc Chapa MD LAB BLOOD ORDERABLES Final R esult Performing Organization Address City/[facility]/ZIP Co de Phone Number [facility] [address] Department of [employer] [place], [place] [id number] * PSA diagnostic (07/06/2024 1:36 PM COMPUTER NETWORKER) PSA-Total 0.08 <=5.40 ng/mL Comment: Interpretive Data [...] last revised 21. Blood 07/06/2024 1:36 PM COMPUTER NETWORKER 07/06/2024 1:48 PM COMPUTER NETWORKER Duc Chapa MD LAB BLOOD ORDERABLES Final R esult [facility] [address] Department [place] [address] * Comprehensive metabolic panel (07/06/2024 1:36 PM COMPUTER NETWORKER) Sodium 140 135 - 145 mmol/L Potassium, pl 4.3 3.3 - 4.9 mmol/L [facility] Chloride 102 97 - 110 mmol/L [facility] CO2 28 22 - 32 mmol/L [facility] Anion gap 10 2 - 15 mmol/L [facility] BUN 12 6 - 25 mg/dL [facility] Creatinine 0.98 0.80 - 1.30 mg/dL [facility] Glucose 88 70 - 199 mg/dL [facility] Comment: Interpretive Data Fasting glucose >/= 126 [...] 2022. Calcium 9.7 8.5 - 10.3 mg/dL [facility] Bilirubin, total 0.2 0.1 - 1.2 mg/dL [facility] Protein, pl 6.7 6.5 - 8.5 g/dL [facility] Albumin 4.5 3.5 - 5.0 g/dL [facility] Alk phos 73 40 - 130 Units/L [facility] ALT 22 7 - 55 Units/L [facility] AST 26 10 - 50 Units/L [facility] Comment:Slightly Hemolyzed S pecimen Blood 07/06/2024 1:36 PM COMPUTER NETWORKER 07/06/2024 1:48 PM COMPUTER NETWORKER us Duc Chapa MD LAB BLOOD ORDERABLES Final R esult [facility] [address] [place] [address] * CT Chest Abdomen Pelvis W Contrast (07/05/2024 7:20 AM COMPUTER NETWORKER) Anatomical Region Laterality Modality Body N/A Computed Tomogra phy 07/05/2024 8:59 AM COMPUTER NETWORKER Impressions 07/05/2024 8:59 AM COMPUTER NETWORKER 1. No evidence of progression. 2. Stable partially calcified aortopulmonary lymph node and 1 cm right hilar lymph node. 3. Similar appearance of osseous metastases. Electronically signed by: Gilson Kumar M.D. Narrative 07/05/2024 8:59 AM COMPUTER NETWORKER EXAMINATION: CT of the chest abdomen and [...] Hepatitis panel, acute Blood (09/08/2023 11:05 AM COMPUTER NETWORKER) Hep A IgM Nonreactive Nonreactive [facility] Comment: Interpretive Data: If Hep A IgM Ab is reported as Equivocal, a new sample should be drawn in two weeks for testing. Current interpretive data was last revised on 19. Hep B core IgM Nonreactive Nonreactive [facility] Comment: Interpretive Data If HepB Core IgM Ab is reported as Equivocal, a new sample should be drawn in two weeks for testing. Current interpretive data was last revised on 19. Hep C Ab Nonreactive Nonreactive [facility] Comment: Interpretive Data Nonreactive: Antibodies to HCV [...] last revised on 2019. HepBsAg Nonreactive Nonreactive [facility] Blood 09/08/2023 11:0 5 AM COMPUTER NETWORKER 09/08/2023 11:13 AM COMPUTER NETWORKER Duc Chapa MD LAB MICROBIOLOGY - GENERAL O RDERABLES Final Result [facility] [address] Department of Laboratories [place], [place] [id number] from Last 3 Months or Most Recently Relevant to Health Maintenance Insurance [facility] HMO [facility] Care Teams Privacy Officer Relationship Specialty Start Date End Date Jacobo Thompson MD [address] [facility] [address] [place] [address] PCP - General Internal Medicine 04/14/23 [place] [address] [address] Consulting Physician Urology 08/15/23 Mark Adrian MD [address] [facility] [address] [place] [address] [address] [place] [address] Consulting Physician Urology 08/15/23 Duc Chapa MD [address] [place] [address] Medical Oncologist/Ink Blender Hematology and Oncology 08/15/23
--- OUTSIDE RECORDS SUMMARY | 2024-09-01 14:47 | XMS_ITS ---
Author Organization [facility] Address [address] [place] [address] Care Team Providers Care Api Developer Name Role Phone Jacobo Thompson MD Primary Care Provider Blair Doherty MD Unavailable [phone] Mark Adrian MD Unavailable [phone] Duc Chapa MD Unavailable [phone] Active Problems Problem Noted Date Diagnosed Date [...] treatments are documented for this patient in [facility]. Treatments may have been administered in another system.
[2024-09-01] MEDS: TOBRAMYCIN SULFATE 0.3% OPHTH SOLN 5 ML 1 DROP RIGHT EYE (15:23)
[2024-09-01 15:30] VITALS: BP 132/77; PULSE 71; RESP 14; TEMP 36.8; O2SAT 99
--- NOTE | 2024-09-01 15:31 | ED_ITS ---
HPI - Eye Problem General Chief complaint: Eye Problems Stated complaint: right eye injury Time Seen by Provider: 09/01/24 14:19 History of Present Illness HPI Narrative: Patient with R eye injury; wire hit his eye at work. No eye drainage other than a few tears initially; no vision loss, no significant pain. wears contact lens. Related Data Home Medications ?Medication ?Instructions ?Recorded ?Confirmed ?Last Taken ?Type levothyroxine 100 mcg tablet 100 mcg PO QAM 06/27/23 06/27/23 Unknown History rosuvastatin 40 mg tablet 40 mg PO QAM 06/27/23 06/27/23 Unknown History vitamin E 400 unit tablet 180 mg PO DAILY 06/27/23 06/27/23 Unknown History Allergies Allergy/AdvReac Type Severity Reaction Status Date / Time No Known Allergies Allergy Verified 09/01/24 14:14 Review of Systems Review of Systems: All systems reviewed & are unremarkable except as noted in HPI and below PMFSH Social History Social History Smoking packs per day: 1 Smoking cigarettes per day: 20.0 Years smoked: 10 Smoking pack-years: 10.00 Smoking status: Former smoker Tobacco type: cigarettes Smoking end date: 06/27/93 Alcohol intake: former Drinks per week: 21 Substance use: never Last use: 03/2023 Do You Feel Safe in your Home?: Yes Lack of Transportation: No Lack of Food: Never True Current Housing: I Have Housing Concerned About Future Housing: No Difficulty Paying Gas/Electric Bills: No Difficulty Paying for Meds: No Currently Unemployed: No Education: Trade/Vocational Certificate Difficulty w/ Childcare or Family Care: No Living arrangements: with family Spiritual care concerns: No Exam Narrative: EXAMINATION OF ORGAN SYSTEMS/BODY AREAS: Constitutional: Vital signs per nursing GENERAL:[No acute distress, non-toxic appearing.] HEAD: Normal with no signs of head trauma. EYES: EOMI, subconjunctival hemorrhage. On fluorescein exam: neg Zander's; no foreign body appreciated; +linear corneal abrasion ENT: Hearing grossly intact LUNGS: Nonlabored breathing. HEART: [Regular rate and rhythm] ABD: [Soft], [nontender to palpation] EXT: Normal range of motion SKIN: [No rashes or lesions.] NEURO: [Alert and oriented x 3. No gross focal sensory or strength deficits.] PSYCH: Normal affect Course Vital Signs Vital signs: Vital Signs Temperature 97.7 F 09/01/24 12:09 Pulse Rate 90 09/01/24 12:09 Respiratory Rate 18 09/01/24 12:09 Blood Pressure 149/89 H 09/01/24 12:09 Pulse Oximetry 99 09/01/24 12:09 Temperature 98.2 F 09/01/24 15:30 Pulse Rate 71 09/01/24 15:30 Respiratory Rate 14 09/01/24 15:30 Blood Pressure 132/77 09/01/24 15:30 Pulse Oximetry 99 09/01/24 15:30 MDM - Eye Problem MDM Narrative Medical decision making narrative: 64-year-old male presents here with eye injury at work, on exam he has a subconjunctival hemorrhage, thankfully negative Zander sign, normal pupils and pupillary response, no signs of globe rupture. He does wear contact lenses, will be started on IV antibiotic with close follow- up to Ophthalmology in the next 1-2 days and strict return precautions discussed with patient and family at bedside and on paper. Discharge Plan Discharge Clinical Impression: Subconjunctival hemorrhage Patient Disposition: Home, Self-Care Condition: Stable Additional Instructions: You scratched your eye today and caused a subconjunctival hemorrhage -- a patch of bleeding underneath the outer layer of your eye. There does not appear to be any deep cut to the eye itself. Please use the eye ointment as prescribed and follow up with an qlikview developer in the next 1-2 days. If you start having increasing pain, difficulty with vision, or notice any drainage or anything else concerning, please go straight to the emergency room at [facility] or [facility]. Patient Language: Cymro Prescriptions: New tobramycin 0.3 % drops 2 drp EACH EYE Q4H 5 Days Qty: 5 0RF No Action levothyroxine 100 mcg tablet 100 mcg PO QAM vitamin E 400 unit Tablet 180 mg PO DAILY rosuvastatin 40 mg tablet 40 mg PO QAM Follow-up/Referrals: [facility] [Outside] - 1 Day (eye injury ) Jay,Jacobo Babb MD [Primary Care Provider] -
== END 2024-09-01 15:32 | disposition home or self-care (01) ==
PROVIDERS: Emergency Provider Emergency Medicine; PCP Internal Medicine
DX: H11.31 Conjunctival hemorrhage, right eye (principal); Z23 Encounter for immunization; Z87.891 Personal history of nicotine dependence; W22.8XXA Striking against or struck by other objects, initial encounter
CPT/HCPCS: 90471; 90715; 99283; A9270